=== PATIENT | female | born 1950 | race Caucasian/White ===

== ENCOUNTER 2017-02-11 06:45 | Inpatient (IN) | payer OTHER, MEDICARE ==
[~2017-02-11] VITALS: Ht 152.4 cm; Wt 63.5 kg
[2017-02-11 07:30] VITALS: BP 160/86; PULSE 65; RESP 18; TEMP 98.1; O2SAT 99
[2017-02-11] MEDS ORDERED: ALPR0.5T3 PO (07:46)
[2017-02-11] MEDS ORDERED: EXEN1INJ SQ (07:46)
[2017-02-11] MEDS ORDERED: HUMALOG SQ (07:46)
[2017-02-11] MEDS ORDERED: GABA300C5 PO (07:46)
[2017-02-11] MEDS ORDERED: VENL37.5 PO (07:46)
[2017-02-11] MEDS ORDERED: DOXA1TAB35 PO (07:46)
[2017-02-11] MEDS ORDERED: METO50TA11 PO (07:46)
[2017-02-11] MEDS ORDERED: DICL1KIT TOPICAL (07:46)
[2017-02-11] MEDS ORDERED: ACYC200C66 PO (07:46)
[2017-02-11] MEDS ORDERED: CARD2TAB PO (07:46)
[2017-02-11] MEDS ORDERED: IRBE300T11 PO (07:46)
[2017-02-11] MEDS ORDERED: METO-489 PO (07:46)
[2017-02-11] MEDS ORDERED: ADDE20 PO (07:46)
[2017-02-11] MEDS ORDERED: HYDR-3366 PO (07:46)
[2017-02-11] MEDS ORDERED: CYAN1TAB24 PO (07:46)
[2017-02-11] MEDS ORDERED: TIZA2TAB PO (07:46)
[2017-02-11] MEDS ORDERED: SYNT112T PO (07:46)
[2017-02-11] MEDS ORDERED: BUPR300T PO (07:46)
[2017-02-11 07:55] LABS: BASOPHIL % 0.6 % (0.0-2.0); EOSINOPHIL # 0.2 TH/MM3 (0-0.4); EOSINOPHIL % 3.5 % (0.0-4.0); HEMATOCRIT 31.7 % (35.0-46.0); HEMO FLAGS DIFF FINAL; LYMPH % 22.1 % (9.0-44.0); MEAN CELL VOLUME 86.2 FL (80.0-100.0); MEAN CORPUSCULAR HEMOGLOBIN 28.6 PG (27.0-34.0); MEAN CORPUSCULAR HGB CONC 33.2 % (32.0-36.0); MONO % 8.4 % (0.0-8.0); NEUT % 65.4 % (16.0-70.0); PLATELET COUNT 192 TH/MM3 (150-450); RED BLOOD COUNT 3.68 MIL/MM3 (4.00-5.30); WHITE BLOOD COUNT 4.6 TH/MM3 (4.0-11.0)
[2017-02-11 08:05] LABS: PROTHROMBIN TIME - PATIENT 10.3 SEC (9.8-11.6)
[2017-02-11 08:08] LABS: APTT (PATIENT) 24.5 SEC (24.3-30.1); INTERNATIONAL NORMALIZED RATIO 0.9 RATIO
[2017-02-11 08:11] LABS: BICARBONATE 28.4 MEQ/L (21.0-32.0); POTASSIUM 3.6 MEQ/L (3.5-5.1)
[2017-02-11] MEDS ORDERED: diphenhydrAMINE HCL 50 MG/ML VIAL ONE (08:35)
[2017-02-11] MEDS ORDERED: HYDROCORTISONE SOD SUCCINATE 100 MG VIAL ONE (08:35)
[2017-02-11] MEDS ORDERED: IOHEXOL 350 MG/ML 50 ML BTL (for Cath Lab) OTHER ONE (09:35)
[2017-02-11] MEDS ORDERED: MIDAZOLAM HCL 2 MG/2 ML VIAL ONE ×2 (09:41→10:22)
[2017-02-11] MEDS ORDERED: HEPARIN-NS/PF INJ 500 ML ONE (09:41)
[2017-02-11] MEDS ORDERED: HEPARIN SODIUM - IV 10,000 UNITS/10 ML VIAL ONE (10:42)
[2017-02-11] MEDS ORDERED: SODIUM CHLOR 0.9% 1000 ML INJ 1,000 ML IV SCH (11:00)
[2017-02-11] MEDS ORDERED: MISC INFORMATION XX ONE (11:15)
[2017-02-11] MEDS ORDERED: ONDANSETRON HCL 4 MG/2 ML VIAL IV PRN (11:15)
[2017-02-11] MEDS ORDERED: ATROPINE SULFATE 1 MG/ML VIAL IV PRN (11:15)
--- NOTE | 2017-02-11 11:22 | CATHPROC ---
[employer] HIS Report Study Information Study Number Admission Scheduled Start Study Start [id number] Feb 11 2017 6:45AM 02/11/2017 Feb 11 2017 9:35AM [place] [facility] Cardiac Catheterization Admit Source Facility Department Other [facility] - Network Systems Integrator Physician and Clinical Staff Initial MD Avila, Peter Pharmacy Retail Support Specialistrosalia Lovelace RN, Mana Echols RN Recorder Madeline Lea RCIS TECH2 Scrub Arthur Saha RCIS(BS) Procedures Performed Procedure Location (Site) Vessel Name Coronary Angiograms LCA Left Coronary Coronary Angiograms RCA Right Coronary Wire insertion Fem Art (right) Femoral Art Equipment Time Hadoop Application Developer Description Size Mfg Part Number Used/Scraped [id number] 09:36 CASSIDY FERGUSON SWAN CAROLIN CATHETER FR 7 Used *[id number] TRANSDUCER, TRUWAVE [id number] 09:36 CASSIDY FERGUSON * Used W/STOCKCOCK *[id number] TRANSDUCER, TRUWAVE [id number] 09:36 CASSIDY FERGUSON * Used W/STOCKCOCK *[id number] 10:56 CARDIVA MEDICAL VASCADE, FR6 CLOSURE SYSTEM FR 6\7 Used *[id number] 10:56 CARDIVA MEDICAL VASCADE, FR6 CLOSURE SYSTEM FR 6\7 Used *[id number]- INTRODUCER SET, 09:36 [employer]OOK INC. FR 5 SC-NT-U-SST Used MICROPUNCTURE, STIFFENED *[id number] [id number] *[id number] 534-545T *[id number] 534-520T *[id number] 534-521T *[id number] WIRE, HYDROSTEER 260CM [id number] 10:18 DAIG/ST. KATRIN MEDICAL 260CM Used STRAIGHT GLIDE *[id number] WIRE, AMPLATZ SUPER STIFF 10:20 Meditech .035 [id number] *[id number] Used STRT WIRE, AMPLATZ SUPER STIFF 10:33 Meditech .035 42478 *[id number] Used STRT [id number] 09:36 Button PACK, CCL CUSTOM * Used *[id number] 09:36 XbyMe MEDICAL WIRE, 3MMJ .035 180CM 180CM Used *[id number] 09:36 NAMIC MANIFOLD, 2 PORT * Used *[id number] 09:36 NAMIC MANIFOLD, 4 PORT * Used *[id number] 09:36 NYCOMED OMNIPAQUE, 350 MG, 150ML 150ML [id number] Used [id number] 09:36 OVIEDO MEDICAL BLANKET,WARM AIR CCL * Used *[id number] 09:43 TERUMO MEDICAL SHEATH, FR6 TERUMO (10CM) FR 6 [id number] Used 09:36 TERUMO MEDICAL SHEATH, FR7 TERUMO (10CM) FR 7 [id number] Used WIRE, ANGLE GLIDE STIFF .035 [id number] 10:28 TERUMO MEDICAL/MANSOOR 260CM Used 260CM *[id number] WIRE, STRIGHT GLIDE STIFF [id number] 10:32 TERUMO MEDICAL/MANSOOR 260CM Used .035 260CM *[id number] 10:50 VASCULAR SOLUTIONS PIGTAIL DUAL LUMEN CATHETER FR 6 5540 *[id number] Used Equipment Model, Serial, Lot Number and Expiration Data Description Model Number Serial Number Lot Number Expiration Date WIRE, AMPLATZ SUPER STIFF STRT [id number] 04-20-2019 WIRE, AMPLATZ SUPER STIFF STRT [id number] 04-20-2019 History: Current Medications Medication Dosage/Unit Route Frequency Last Date/Time Taken Insulin LOPRESSOR Synthroid History: Allergies Allergy Reaction Adhesives Contrast Media Iodine History: Risk Factors Family History of Hypertension Dyslipidemia Previous SC Previous Heart Failure Premature CAD Yes Yes Yes No No Prior Valve Prior PCI Prior CABG Surgery No No No Cerebrovascular Peripheral Artery Chronic Lung On Dialysis Diabetes Diabetes Therapy Disease Disease Disease No No No No Yes Insulin History: Symptoms/Diagnosis Selection Items CASTILLO SOB History: Stress Tests Stress or Imaging Studies Performed No History: Other Disease Selection Items Renal Failure/Insufficiency History: Other Current Smoker No Labs Hgb (g/dl) Hct (%) WBC (l/cumm) Platelets (thousands) 12.00-18.00 37.00-55.00 4.80-10.80 140.00-450.00 10.5 31.7 4.6 192 Glucose (mg/dl) BUN (mg/dl) Creatinine (mg/dl) BUN:Creatinine (1:x) 60.00-110.00 8.00-20.00 0.10-9.00 10.00-20.00 79 14 1.1 12.7 Na (meq/l) K (meq/l) 138.00-146.00 3.80-5.10 144 3.6 INR (PTT:PT) 0.50-2.00 0.9 CPK-MB (ng/ML) 0.00-7.00 Not Drawn Medication Medication Total Dose (Bolus/Oral) Medication Total Dosage/Unit 1% XYLOCAINE 20 mL FENTANYL 100 mcg HEPARIN 2500 units VERSED 4 mg Medications (Bolus/Oral) Medication Time Given Dosage/Unit Administered By Reason VERSED 02/11/2017 9:59:59 AM 2 mg Edmar Fergusonantha 2 mg VERSED given in lab by Mana Ferguson RN in Left Antecubital via Peripheral IV. Ordered by Peter Capps. FENTANYL 02/11/2017 10:00:13 AM 50 mcg Hiren Fergusona 50 mcg FENTANYL given in lab by Mana Ferguson RN in Left Antecubital via Peripheral IV. Ordered by Peter Avila. 1% XYLOCAINE 02/11/2017 10:00:30 AM 20 mL Peter Avila 20 mL 1% XYLOCAINE given in lab by Peter Avila in Right Groin via Subcutaneous. Ordered by Peter Blackman. FENTANYL 02/11/2017 10:08:10 AM 25 mcg Hiren Fergusona 25 mcg FENTANYL given in lab by Mana Ferguson RN in Left Antecubital via Peripheral IV. Ordered by Peter Avila. VERSED 02/11/2017 10:23:04 AM 2 mg Edmar Fergusonantha 2 mg VERSED given in lab by Mana Ferguson RN in Left Antecubital via Peripheral IV. Ordered by Peter Capps. FENTANYL 02/11/2017 10:31:45 AM 25 mcg Hiren Fergusona 25 mcg FENTANYL given in lab by Mana Ferguson RN in Left Antecubital via Peripheral IV. Ordered by Peter Avila. HEPARIN 02/11/2017 10:43:09 AM 2500 units Mana Ferguson 2500 units HEPARIN given in lab by Mana Ferguson RN in Left Antecubital via Peripheral IV. Order ed by Peter Avila. Medication (Drip) Medication Time Given Dosage/Unit Concentration/Unit Diluent (ml) Solution IV Solutions 02/11/2017 9:37:33 AM 0 mL (IV) 500 NaCl .9 Patient arrived on IV Solutions in Left Antecubital via Peripheral IV. Pump/Drip Flow = 20 ml/hr usin g NaCl .9. Initial Case Assessment Cardiovascular HR Rhythm NIBP Chest Pain 71 sr 182/89 0 Circulatory - Right Pulses Dorsalis Pedis Femoral 2 2 Scale (0,1,2,3,4,d) Circulatory - Left Pulses Dorsalis Pedis Femoral 2 2 Scale (0,1,2,3,4,d) Neurological State Oriented to time-place- Alert Moves all extremities person Respiration - General Respiration Rate SpO2 (%) (B/min) 10 100 Final Case Assessment Cardiovascular HR Rhythm NIBP Chest Pain 63 sr 144/77 0 Circulatory - Right Pulses Dorsalis Pedis Femoral 2 2 Scale (0,1,2,3,4,d) Circulatory - Left Pulses Dorsalis Pedis Femoral 2 2 Scale (0,1,2,3,4,d) Neurological State Oriented to time-place- Alert Moves all extremities person Respiration - General Respiration Rate SpO2 (%) (B/min) 13 99 Chronological Log Time Study Chronological Log Patient arrived via Bed. Patient recieved 100mg solucortef, 20mg famotidene, 25mg benadryl prio r to car barn laborer arrival 9:37:16 for contrast allergy. 9:37:18 Patient Name, D.O.B, / Armband Verified By R.N. 9:37:19 Consent signed by the physician and the patient and verified by the Network Systems Integrator staff. 9:37:20 Pre-op and post- op instructions given; patient acknowledges understanding of instructions. 9:37:21 Verbal Stimulation=2 Physical Stimulation=2 Airway=2 Respiration=2 TOTAL=8. (0=absent, 1=guillaume ited, 2=present) 9:37:23 Presedation assessment performed by Network Systems Integrator RN. 9:37:26 Patient has been NPO for More than 6Hrs. 9:37:27 Skin Breakdown-generalized scratches 9:37:29 Pineda Prominences Protected 9:37:32 A # 22 IV was noted in the Antecubital (left). Grade = patent 9:37:33 Patient arrived on IV Solutions in Left Antecubital via Peripheral IV. Pump/Drip Flow = 20 m l/hr using NaCl .9. 9:37:35 History and physical on the chart or being dictated. Vitals capture started with the following parameters, Patient=Adult, Interval=15 min, Initial P kcaurrm=619 mmHg, 9:40:00 Deflation Rate=5 mmHg 9:41:18 FEHP=579/81 mmhg 9:42:42 HR=69 bpm, RZRR=706/87 mmhg, SpO2=97.0 %, Resp=10 B/min, Pain=0, Amanda=2 Assessment: Initial Case, HR=71 BPM, Rhythm=sr, PVXV=237/89 mmhg, Chest Pain=0 Right Pulses: Jose Raul Ped=2, Femoral=2 9:44:00 Left Pulses: Jose Raul Ped=2, Femoral=2 Neurological: State=Alert, Ox3, CEBALLOS Respiration: Resp=10 B/min, ToB4=965 % 9:44:45 HR=76 bpm, GKXA=236/89 mmhg, SpO2=99.0 %, Resp=19 B/min, Pain=0, Amanda=2 9:45:18 Bilateral groins prepped with 2% chlorhexidine, and with a 3 min. waiting time. 9:45:42 Reference ECG taken 9:46:46 HR=78 bpm, SUYB=983/85 mmhg, SpO2=97.0 %, Resp=19 B/min, Pain=0, Amanda=2 9:48:50 HR=64 bpm, KCBY=175/73 mmhg, SpO2=99.0 %, Resp=13 B/min, Pain=0, Amanda=2 9:51:22 HR=67 bpm, CNMY=119/76 mmhg, SpO2=99.0 %, Resp=18 B/min, Pain=0, Amanda=2 9:52:55 Pressure channel 1 zeroed. 9:52:59 Pressure channel 2 zeroed. 9:53:21 HR=62 bpm, CPOY=360/79 mmhg, SpO2=99.0 %, Resp=13 B/min, Pain=0, Amanda=2 9:54:33 MD arrived. 9:54:47 HR=64 bpm, VODM=616/71 mmhg, SpO2=99.0 %, Resp=20 B/min, Pain=0, Amanda=2 9:56:48 HR=64 bpm, GJDW=001/76 mmhg, SpO2=99.0 %, Resp=13 B/min, Pain=0, Amanda=2 9:58:44 HR=62 bpm, WMJG=082/75 mmhg, SpO2=99.0 %, Resp=20 B/min, Pain=0, Amanda=2 Time Out. Correct patient, correct procedure,correct physician, power injector loaded with cont rast with surgical team 9:59:01 present. Time Out Concurred by MD and individual staff in procedure 9:59:29 Case Start 2 mg VERSED given in lab by Mana Ferguson, RN in Left Antecubital via Peripheral IV. Ordere d by Margarita, 9:59:59 Peter. 50 mcg FENTANYL given in lab by Mana Ferguson RN in Left Antecubital via Peripheral IV. Or dered by Margarita, 10:00:13 Peter. 20 mL 1% XYLOCAINE given in lab by Margarita Peter in Right Groin via Subcutaneous. Ordered b y Margarita, 10:00:30 Peter. 10:00:45 HR=67 bpm, MKSG=157/82 mmhg, UtS8=533.0 %, Resp=13 B/min 10:02:11 Access site was Right Femoral Artery. 10:02:46 HR=62 bpm, DXXS=005/73 mmhg, SpO2=97.0 %, Resp=25 B/min A INTRODUCER SET, MICROPUNCTURE, STIFFENED FR 5 was advanced into the Fem Art (right) using the 10:03:03 Percutaneous technique. A SHEATH, FR6 TERUMO (10CM) FR 6 was exchanged in the Fem Art (right). This was necessary in or terri to 10:03:11 accomodate a larger catheter. 10:03:22 Access site was Right Femoral Vein. A INTRODUCER SET, MICROPUNCTURE, STIFFENED FR 5 was advanced into the Fem Vein (right) using th e 10:03:36 Percutaneous technique. A SHEATH, FR7 TERUMO (10CM) FR 7 was exchanged in the Fem Vein (right). This was necessary in o rder to 10:03:51 accomodate a larger catheter. 10:04:06 An injection in the Fem Art (right) was made through the SHEATH, FR6 TERUMO (10CM) FR 6. 10:04:41 HR=64 bpm, VVWG=057/79 mmhg, SpO2=95.0 %, Resp=8 B/min, Pain=0, Amanda=2 10:06:04 A SWAN CAROLIN CATHETER FR 7 was inserted via Fem Vein (right) 10:06:42 HR=64 bpm, BQKO=397/82 mmhg, SpO2=97.0 %, Resp=20 B/min Recorded Pressure: PCW, HR=64, Condition=Condition 1 10:07:18 (Pulmonary Capillary Wedge) PCW 22/26/18 25 mcg FENTANYL given in lab by Mana Ferguson RN in Left Antecubital via Peripheral IV. Or dered by Margarita, 10:08:10 Peter. Recorded Pressure: MPA, HR=62, Condition=Condition 1 10:08:25 (Main Pulmonary Artery) MPA 46/16/30 10:08:43 HR=61 bpm, FOZI=165/83 mmhg, SpO2=98.0 %, Resp=18 B/min 10:09:11 Saturation: Site=PA (Pulmonary Artery) , O2=68.1 %, Hgb=10.5 gm/dl, Condition=Condition 1. Used in calculation. 10:10:09 Saturation: Site=Ao (Aorta) , O2=93.7 %, Hgb=10.5 gm/dl, Condition=Condition 1. Used in bhargavi culation. Recorded Pressure: RV, HR=68, Condition=Condition 1 10:10:10 (Right Ventricle) RV 5311/9 Recorded Pressure: RA, HR=64, Condition=Condition 1 10:10:36 (Right Atrium) RA 10:10:41 HR=64 bpm, GKTK=456/77 mmhg, SpO2=95.0 %, Resp=15 B/min, Pain=0, Amanda=2 10:11:21 Saturation: Site=RA (Right Atrium) , O2=71.1 %, Hgb=10.5 gm/dl, Condition=Condition 1. Used in calculation. 10:11:36 Rociada Carolin Catheter Removed A JL 4.0 INFINITI CATHETER FR 5 was advanced over a wire. OMNIPAQUE, 350 MG, 150ML 150ML was us ed for 10:12:41 injections. 10:12:42 HR=77 bpm, YJAD=910/76 mmhg, SpO2=96.0 %, Resp=16 B/min, Pain=0, Amanda=2 10:12:56 The LCA was injected and visualized at various angles. OMNIPAQUE, 350 MG, 150ML 150ML used . 10:14:10 Catheter was removed 10:14:43 HR=66 bpm, UKJO=665/77 mmhg, SpO2=94.0 %, Resp=17 B/min A JR 4.0 INFINITI CATHETER FR 5 was advanced over a wire. OMNIPAQUE, 350 MG, 150ML 150ML was us ed for 10:15:12 injections. 10:16:36 The RCA was injected and visualized at various angles. OMNIPAQUE, 350 MG, 150ML 150ML used . 10:16:44 HR=67 bpm, MDVI=623/78 mmhg, SpO2=96.0 %, Resp=19 B/min A AL 1 INFINITI CATHETER FR 5 was advanced over a wire. OMNIPAQUE, 350 MG, 150ML 150ML was used for 10:17:01 injections. 10:18:45 HR=70 bpm, FGDQ=728/79 mmhg, SpO2=99 %, Resp=20 B/min 10:19:36 A WIRE, HYDROSTEER 260CM STRAIGHT GLIDE 260CM was inserted via Fem Art (right). 10:20:45 HR=67 bpm, IGWA=429/81 mmhg, SpO2=97.0 %, Resp=12 B/min, Pain=0, Amanda=2 After removing the current catheter a catheter was advanced over a WIRE, HYDROSTEER 260CM STRAI GHT GLIDE 10:21:40 260CM. 2 mg VERSED given in lab by Mana Ferguson, RN in Left Antecubital via Peripheral IV. Ordere d by Margarita, 10:23:04 Peter. 10:23:25 HR=65 bpm, FQRE=584/78 mmhg, SpO2=96.0 %, Resp=14 B/min 10:24:21 Wire placement lost, catheter and wire removed 10:24:47 HR=65 bpm, LVYK=605/78 mmhg, SpO2=97.0 %, Resp=14 B/min, Pain=0, Amanda=2 A AL 1 INFINITI CATHETER FR 5 was advanced over a wire. OMNIPAQUE, 350 MG, 150ML 150ML was used for 10:24:58 injections. 10:25:10 A WIRE, AMPLATZ SUPER STIFF STRT .035 was inserted via Fem Art (right). 10:26:46 HR=70 bpm, CHHM=700/80 mmhg, SpO2=96.0 %, Resp=20 B/min, Pain=0, Amanda=2 10:27:59 Wire removed 10:28:47 HR=69 bpm, XVPL=784/84 mmhg, SpO2=94.0 %, Resp=17 B/min 10:30:15 A WIRE, STRIGHT GLIDE STIFF .035 260CM 260CM was inserted via Fem Art (right). 10:30:48 HR=67 bpm, HATP=254/76 mmhg, SpO2=96.0 %, Resp=19 B/min, Pain=0, Amanda=2 25 mcg FENTANYL given in lab by Mana Ferguson RN in Left Antecubital via Peripheral IV. Or dered by Margarita, 10:31:45 Peter. 10:32:51 HR=68 bpm, JWRA=589/78 mmhg, SpO2=95.0 %, Resp=19 B/min 10:33:21 Wire removed and catheter removed and flushed A AL 1 INFINITI CATHETER FR 5 was advanced over a wire. OMNIPAQUE, 350 MG, 150ML 150ML was used for 10:34:08 injections. 10:34:30 A WIRE, AMPLATZ SUPER STIFF STRT .035 was inserted via Fem Art (right). 10:35:32 HR=69 bpm, QUHU=667/77 mmhg, SpO2=95 %, Resp=14 B/min, Pain=0, Amanda=2 10:36:16 Nuerological checks assessed by Ashwin Ferguson RN. 10:36:48 HR=65 bpm, EMDS=364/75 mmhg, SpO2=97.0 %, Resp=19 B/min 10:37:16 Wire and catheter removed A AL 1 INFINITI CATHETER FR 5 was advanced over a wire. OMNIPAQUE, 350 MG, 150ML 150ML was used for 10:38:34 injections. 10:38:49 HR=70 bpm, QYZF=993/78 mmhg, SpO2=95 %, Resp=18 B/min 10:39:28 A WIRE, AMPLATZ SUPER STIFF STRT .035 was inserted via Fem Art (right). 10:40:50 HR=66 bpm, GTWR=393/75 mmhg, SpO2=95.0 %, Resp=20 B/min 10:42:11 Wire removed 10:42:22 Catheter was removed and flushed 10:42:51 HR=66 bpm, SLSB=754/77 mmhg, SpO2=95.0 %, Resp=19 B/min 2500 units HEPARIN given in lab by Mana Ferguson, RN in Left Antecubital via Peripheral IV. Ordered by Shaikh- 10:43:09 Peter Block. A AL 1 INFINITI CATHETER FR 5 was advanced over a wire. OMNIPAQUE, 350 MG, 150ML 150ML was used for 10:44:25 injections. 10:44:39 A WIRE, AMPLATZ SUPER STIFF STRT .035 was inserted via Fem Art (right). 10:45:30 HR=69 bpm, QEQX=886/74 mmhg, SpO2=95 %, Resp=17 B/min 10:47:03 AL1 catheter crossed the valve. 10:47:24 The previous wire was exchanged for a WIRE, ANGLE GLIDE STIFF .035 260CM 260CM. 10:47:41 After removing the current catheter a PIGTAIL DUAL LUMEN CATHETER FR 6 was advanced over a wire. 10:47:58 Wire removed 10:48:08 HR=75 bpm, EXGK=311/71 mmhg, SpO2=96.0 %, Resp=10 B/min 10:49:18 HR=64 bpm, FFYI=537/80 mmhg, SpO2=95.0 %, Resp=16 B/min Recorded Pressure: LV, Ao, HR=70, Condition=Condition 1 10:50:16 (Left Ventricle) LV 205/6/16, (Aorta) Ao 178/82/122 Recorded Pressure: LV, Ao, HR=69, Condition=Condition 1 10:50:44 (Left Ventricle) LV 204/6/16, (Aorta) Ao 178/80/122 10:50:48 HR=66 bpm, BJBE=870/85 mmhg, Resp=18 B/min Recorded Pressure: LV, Ao, HR=67, Condition=Condition 1 10:50:58 (Left Ventricle) LV 192/28/29, (Aorta) Ao 173/74/116 Recorded Pressure: LV, Ao, Ao, HR=68, Condition=Condition 1 (Left Ventricle) LV 198/4/15, 10:51:00 (Aorta) Ao 190/70/120, (Aorta) Ao 177/76/119 10:52:51 HR=64 bpm, IHMZ=818/74 mmhg, Resp=21 B/min 10:52:59 Catheter was removed 10:54:54 HR=64 bpm, HKFY=421/79 mmhg, Resp=9 B/min 10:55:01 VASCADE, FR6 CLOSURE SYSTEM FR 6\7 placement in the Fem Art (right) 10:56:52 HR=69 bpm, HENR=953/85 mmhg, SpO2=99 %, Resp=17 B/min 10:57:18 VASCADE, FR6 CLOSURE SYSTEM FR 6\7 placement in the Fem Vein (right) manual pressure held 10:57:26 Case End 10:58:53 HR=61 bpm, FHJB=806/84 mmhg, SpO2=99 %, Resp=19 B/min 11:00:56 HR=60 bpm, QXAU=652/79 mmhg, SpO2=99 %, Resp=12 B/min 11:02:55 HR=60 bpm, OHUF=265/80 mmhg, SpO2=99 %, Resp=15 B/min 11:04:52 HR=64 bpm, WMRG=831/77 mmhg, SpO2=99 %, Resp=10 B/min 11:05:21 Sterile dressing applied to site 11:05:22 No case complications noted. 11:05:23 Cine recording checked. 11:05:24 Bedside Report will be given. Assessment: Final Case, HR=63 BPM, Rhythm=sr, PFBJ=065/77 mmhg, Chest Pain=0 Right Pulses: Jose Raul Ped=2, Femoral=2 11:05:26 Left Pulses: Jose Raul Ped=2, Femoral=2 Neurological: State=Alert, Ox3, CEBALLOS Respiration: Resp=13 B/min, SpO2=99 % 11:06:48 HR=62 bpm, NYEF=216/74 mmhg, Resp=11 B/min 11:08:53 HR=62 bpm, ITGY=235/72 mmhg, Resp=20 B/min 11:10:50 HR=62 bpm, KKHT=040/77 mmhg, Resp=12 B/min 11:12:51 HR=58 bpm, MHLW=022/77 mmhg, Resp=18 B/min 11:14:52 MOUO=030/75 mmhg 11:17:33 Patient moved to bed 11:17:42 Patient transported to DOCU End Study - Contrast Media Used In Study Contrast Total Opened (mL) Total Used (mL) Total Wasted (mL) Omnipaque 15 15 0 End Study - Maximum Contrast Load Max Contrast Load (mL) 267.8 End Study - Radiation Exposure Fluoro Time (minutes) 22.7 End Study - Sheaths Sheaths Pulled By Sheath Hold Time (min) Peter Avila End Study - Patient Disposition Complications Transferred To Telemetry Bed
--- NOTE | 2017-02-11 11:44 | MA ---
cc: KOBYSHAYLEEPETER DATE: 02/11/2017 DATE OF : 1950 PROCEDURE PERFORMED 1. Right heart catheterization. 2. Left heart catheterization. 3. Selective right and left coronary angiography. 4. Right common femoral artery angiography. INDICATION Severe , severe AI, with symptoms of worsening shortness of breath on exertion PROCEDURE DESCRIPTION Consent was signed. The patient was brought into the cardiac liaison inspection laboratory assistant in a fasting state. The right groin was prepped and draped in a sterile fashion using 1% lidocaine for local anesthesia and a micropuncture kit. A 6-Serbian sheath was inserted into the right common femoral artery and a 7-Serbian sheath was inserted into the right femoral vein. A Benson-Butch was floated into wedge. This was followed by saturation recordings and pressure recordings in the right heart. Calculation of cardiac output was done by Javier's formula. Selective right and left coronary angiography were then performed with a JR4 and JL4 diagnostic catheters. Angiography was taken in multiple views. Then an AL-1 and straight Amplatz wire were used to cross the aortic valve. A dual-lumen pigtail was used to measure the simultaneous pressures in the left ventricle and the aorta. The patient tolerated the procedure well without complications. Estimated blood loss less than 40 cc. Total contrast used 15 cc. The patient's groin access sites were closed with two Vascade closure devices. RESULTS Right heart cath Pulmonary wedge pressure 18. Main PA 30. Right ventricle 53/11 with a mean of 9. Right atrium 11/9 with a mean of 8. Calculated cardiac output by Javier was 5.3. Left ventricular pressure 198/4 with an LVEDP of 15. Aortic pressure 177/76 with a mean of 119. Mean gradient across the aortic valve was 22. Calculated valve area by Hakki equation was 1.1. ANGIOGRAPHY 1. The left main is short and patent with MALIK-III flow. 2. The LAD is a transapical vessel. It tapers down at the end. It has minimal luminal irregularities. There are two diagonal vessels which are patent with MALIK-III flow. 3. The circumflex artery has minimal luminal irregularities. It is giving off three OM branches which are tortuous and patent with MALIK-III flow. 4. There is a small ramus vessel which is patent with MALIK-III flow. 5. The right coronary artery is a dominant vessel giving off the PDA. It is patent with MALIK-III flow and nonobstructive coronary artery disease. CONCLUSIONS 1. Nonobstructive coronary artery disease. 2. Moderate to severe aortic stenosis. 3. Moderate Aortic Insufficiency RECOMMENDATIONS - Transfer to DOC unit for post-cath care. - 2-D echocardiogram to assess aortic stenosis and regurgitation - CT surgery for consult for AVR Peter Avila MD MARKET GARDENER/BT /11:16 AM /11:30 AM TARIQ
--- NOTE | 2017-02-11 14:17 | EKG ---
Date Performed: 02/11/2017 Time Performed: 07:54:18 PTAGE: 66 years EKG: Possible ectopic atrial rhythm. Septal T wave changes are nonspecific Borderline ECG NO PREVIOUS TRACING DOCTOR: Shailesh Hebert Interpretating Date/Time 02/11/2017 14:15:05
[2017-02-11] MEDS ORDERED: ACETAMINOPHEN/HYDROcodone 325 MG/10 MG TAB PO ONE (15:00)
[2017-02-11] MEDS ORDERED: CHLORHEXIDINE GLUCONATE 4% SOLN 120 ML BTL TOPICAL SCH (15:15)
[2017-02-11] MEDS ORDERED: CEFAZOLIN INJ 500 MG in SODIUM CHLORIDE 0.9% IRR BTL 500 ML IRRIGATION SCH (15:15)
[2017-02-11] MEDS ORDERED: ceFAZolin 2 GM PREMIX 50 ML IV SCH (15:15)
[2017-02-11] MEDS ORDERED: INSULIN REGULAR (IV INFUSION) 100 UNITS in SODIUM CHLORIDE 0.9% INJ 100 ML IV SCH (15:15)
[2017-02-11] MEDS ORDERED: METOPROLOL TARTRATE 25 MG TAB PO SCH (15:15)
[2017-02-11] MEDS ORDERED: NON-FORMULARY DRUG (Insulin Lispro (Human) Inj (Humalog Inj) 0 UNITS) SQ SCH (16:00)
[2017-02-11] MEDS ORDERED: GLUCAGON 1 MG/ML VIAL OTHER PRN (16:15)
[2017-02-11] MEDS ORDERED: DEXTROSE 50% IN WATER 50 ML VIAL(D50) IV PUSH PRN (16:15)
--- NOTE | 2017-02-11 16:47 | ECHRPT ---
Indication: coronary atherosclerosis, AI CONCLUSIONS Normal left ventricular size. Mild concentric left ventricular hypertrophy. The left ventricular systolic function is normal with an estimated ejection fraction in the range of 55-60%. No regional wall motion abnormalities are present. The left atrial size is mildly dilated. Mild thickening of the mitral valve leaflets. Moderate mitral valve regurgitation. Mitral annular calcification is present. Moderate thickening of the aortic valve leaflets. Moderate to Severe aortic valve regurgitation. Severe aortic valve stenosis. Aortic valve area is 0.82 cm. Aortic valve mean gradient is 43 mmHg. There is trace tricuspid valve regurgitation. The estimated pulmonary arterial pressure is 35 mmHg. BP: 160 / 86 HR: 65 Rhythm: Sinus MEASUREMENTS (Male / Female) Normal Values Technical Quality:Good 2D ECHO LV Diastolic Diameter PLAX 4.3 cm 4.2 - 5.9 / 3.9 - 5.3 cm LV Systolic Diameter PLAX 3.3 cm IVS Diastolic Thickness 1.3 cm 0.6 - 1.0 / 0.6 - 0.9 cm LVPW Diastolic Thickness 0.9 cm 0.6 - 1.0 / 0.6 - 0.9 cm LV Relative Wall Thickness 0.5 RV Internal Dim ED PLAX 2.2 cm LVOT Diameter 1.7 cm LA Systolic Diameter LX 3.7 cm 3.0 - 4.0 / 2.7 - 3.8 cm DOPPLER AV Peak Velocity 433.0 cm/s AV Peak Gradient 75.0 mmHg AV Mean Gradient 43.0 mmHg AV Velocity Time Integral 120.0 cm LVOT Peak Velocity 183.0 cm/s LVOT Peak Gradient 13.4 mmHg LVOT Velocity Time Integral 43.4 cm LVOT Cardiac Index 4033.3 cm/minm AV Area Cont Eq vti 0.8 cm AV Area Cont Eq pk 1.0 cm MV Peak Velocity 182.0 cm/s MV Peak Gradient 13.2 mmHg MV Mean Velocity 94.3 cm/s MV Mean Gradient 4.0 mmHg MV Area PHT 3.2 cm MR Peak Velocity 703.0 cm/s MR Peak Gradient 197.7 mmHg Mitral E Point Velocity 82.7 cm/s Mitral A Point Velocity 135.0 cm/s Mitral E to A Ratio 0.6 LV E' Lateral Velocity 5.9 cm/s Mitral E to LV E' Lateral Ratio 14.1 LV E' Septal Velocity 4.6 cm/s Mitral E to LV E' Septal Ratio 18.1 TR Peak Velocity 276.0 cm/s TR Peak Gradient 30.5 mmHg FINDINGS LEFT VENTRICLE Normal left ventricular size. Mild concentric left ventricular hypertrophy. The left ventricular systolic function is normal with an estimated ejection fraction in the range of 55-60%. No regional wall motion abnormalities are present. RIGHT VENTRICLE Normal right ventricular size and systolic function. LEFT ATRIUM The left atrial size is mildly dilated. RIGHT ATRIUM The right atrial size is normal. ATRIAL SEPTUM Normal atrial septal thickness without atrial level shunting by limited color doppler interrogation. AORTA The aortic root and proximal ascending aorta are normal in size on limited imaging. MITRAL VALVE Mild thickening of the mitral valve leaflets. Moderate mitral valve regurgitation. Mitral annular calcification is present. AORTIC VALVE Moderate thickening of the aortic valve leaflets. Moderate aortic valve regurgitation. Moderate aortic valve stenosis. Aortic valve area is 0.82 cm. Aortic valve mean gradient is 43 mmHg. TRICUSPID VALVE There is trace tricuspid valve regurgitation. The estimated pulmonary arterial pressure is 35 mmHg. PULMONARY VALVE The pulmonary valve is not well visualized. VESSELS The inferior vena cava is normal in size. PERICARDIUM No pericardial effusion. Peter Avila MD (Electronically Signed) Final Date:11 February 2017 16:46
[2017-02-11 18:37] VITALS: BP 178/82; PULSE 66; RESP 18; TEMP 98.6; O2SAT 97
[2017-02-11 20:00] VITALS: PULSE 65
[2017-02-11] MEDS: GABAPENTIN 300 MG CAP PO SCH (20:29)
[2017-02-11] MEDS: MUPIROCIN 2% OINT 1 APPLIC/GM SYR EACH NARE SCH (20:29)
[2017-02-11] MEDS: ACETAMINOPHEN/HYDROcodone 325 MG/10 MG TAB PO PRN (20:43)
[2017-02-11] MEDS: ALPRAZolam 0.25 MG TAB PO PRN (20:43)
[2017-02-11 21:00] VITALS: BP 146/65; PULSE 65; RESP 20; TEMP 98.6; O2SAT 98
[2017-02-11] MEDS: DEXTROAMPHETAMINE/AMPHETAMINE 20 MG TAB PO SCH (21:00)
[2017-02-11] MEDS: LOW DOSE INSULIN NOVOLIN REGULAR SUPPLEMENTAL SCALE SQ SCH (21:00)
[2017-02-11] MEDS ORDERED: PILL SPLITTER OTHER PRN (21:00)
[2017-02-11 22:00] VITALS: PULSE 62
[2017-02-12] VITALS (12 sets, daily range): BP systolic 137–162; BP diastolic 62–70; PULSE 61–97; RESP 18–20; TEMP 98.3–98.8; O2SAT 94–97
[2017-02-12 00:35] LABS: AUTOMATED NEUTROPHIL # 4.5 TH/MM3 (1.8-7.7); BASOPHIL % 0.4 % (0.0-2.0); EOSINOPHIL % 0.5 % (0.0-4.0); HEMO FLAGS DIFF FINAL; LYMPH % 17.2 % (9.0-44.0); LYMPHOCYTE # 1.1 TH/MM3 (1.0-4.8); MEAN CELL VOLUME 87.5 FL (80.0-100.0); MEAN CORPUSCULAR HEMOGLOBIN 28.1 PG (27.0-34.0); MEAN CORPUSCULAR HGB CONC 32.1 % (32.0-36.0); MONO % 9.7 % (0.0-8.0); NEUT % 72.2 % (16.0-70.0); PLATELET COUNT 151 TH/MM3 (150-450); RED BLOOD COUNT 3.31 MIL/MM3 (4.00-5.30); RED CELL DISTRIBUTION WIDTH 14.9 % (11.6-17.2); WHITE BLOOD COUNT 6.2 TH/MM3 (4.0-11.0)
[2017-02-12 00:50] LABS: APTT (PATIENT) 18.4 SEC (24.3-30.1); INTERNATIONAL NORMALIZED RATIO 0.9 RATIO; PROTHROMBIN TIME - PATIENT 10.3 SEC (9.8-11.6)
[2017-02-12 00:56] LABS: ALKALINE PHOSPHATASE 61 U/L (45-117); ALT (GPT) 15 U/L (10-53); ANION GAP 11 MEQ/L (5-15); AST (GOT) 17 U/L (15-37); BICARBONATE 23.6 MEQ/L (21.0-32.0); BLOOD UREA NITROGEN 21 MG/DL (7-18); CHLORIDE 110 MEQ/L (98-107); GLOMERULAR FILTRATION RATE 47 ML/MIN (>89); POTASSIUM 3.6 MEQ/L (3.5-5.1); SODIUM (NA) 145 MEQ/L (136-145); TOTAL BILIRUBIN ADULT 0.3 MG/DL (0.2-1.0)
[2017-02-12] MEDS: ACETAMINOPHEN/HYDROcodone 325 MG/10 MG TAB PO PRN ×4 (03:42→23:40)
[2017-02-12] MEDS: LEVOTHYROXINE SODIUM 112 MCG TAB PO SCH (06:00)
[2017-02-12] MEDS: LOW DOSE INSULIN NOVOLIN REGULAR SUPPLEMENTAL SCALE SQ SCH ×4 (07:00→19:56)
[2017-02-12] MEDS ORDERED: METOPROLOL SUCCINATE 50 MG EXTENDED RELEASE TAB PO SCH (09:00)
[2017-02-12] MEDS: MUPIROCIN 2% OINT 1 APPLIC/GM SYR EACH NARE SCH ×2 (09:00→19:55)
[2017-02-12] MEDS: SODIUM CHLORIDE 0.9% FLUSH 10 ML FLUSH IV FLUSH SCH ×3 (09:00→21:00)
[2017-02-12] MEDS: DOXAZOSIN MESYLATE 2 MG TAB PO SCH (09:00)
[2017-02-12] MEDS: VENLAFAXINE HCL XR 75 MG CAP PO SCH (09:09)
[2017-02-12] MEDS: DEXTROAMPHETAMINE/AMPHETAMINE 20 MG TAB PO SCH ×2 (09:10→20:03)
[2017-02-12] MEDS: ALPRAZolam 0.25 MG TAB PO PRN ×2 (09:10→23:40)
[2017-02-12] MEDS: GABAPENTIN 300 MG CAP PO SCH ×2 (09:10→19:54)
[2017-02-12] MEDS: buPROPion HCL 150 MG SUSTAINED RELEASE TAB PO SCH ×2 (09:10→19:54)
[2017-02-12 15:10] LABS: BLOOD, URINE TRACE (NEG); COMMENT (UR) CULT NOT INDICATED; CULTURE IF INDICATED CULT NOT INDICATED; GLUCOSE,URINE NEG (NEG); HYALINE CAST, URINE 1 /lpf (RARE); KETONE, URINE NEG (NEG); MUCUS URINE FEW /lpf (OCC); NITRITE,URINE NEG (NEG); PH, URINE 5.5 (5.0-8.5); SQUAMOUS EPITHELIAL CELL URINE 3 /hpf (0-5); URINE COLOR YELLOW (YELLW/STRAW)
--- NOTE | 2017-02-12 15:36 | RADRPT ---
EXAM DATE/TIME: 02/12/2017 14:49 [facility] COMPARISON: No previous studies available for comparison. INDICATIONS : Congestive heart failure. RADIATION DOSE: 7.98 CTDIvol (mGy) MEDICAL HISTORY : Hypertension. Ovarian cancer SURGICAL HISTORY : Hysterectomy. ENCOUNTER: Initial ACUITY: 1 day PAIN SCALE: 0/10 LOCATION: chest TECHNIQUE: Volumetric scanning of the chest was performed. Using automated exposure control and adjustment of t he mA and/or kV according to patient size, radiation dose was kept as low as reasonably achievable to obtain optimal diagnostic quality images. FINDINGS: LUNGS: There is a tiny 2 mm nodule in the lateral left upper lobe. There is no consolidation or pneumothorax . PLEURAE: There is no pleural thickening or pleural effusion. MEDIASTINUM: The heart and great vessels demonstrate no acute abnormality. There is no mediastinal or hilar lymph adenopathy. AXILLAE: Within normal limits. No lymphadenopathy. MUSCULOSKELETAL: Within normal limits for patient age. MISCELLANEOUS: The visualized upper abdominal organs demonstrate no acute abnormality. There is a staple line seen a long stomach likely from prior gastric bypass procedure. CONCLUSION: Tiny 2 mm nodule in the left upper lobe. It is nonspecific. In a low risk patient, no additional foll owup is needed. In a high risk patient, a followup CT examination 6-12 months could be performed. 30 pack year smoking history or underlying neoplasm places the patient at higher risk in general. Phi Guevara MD on February 12, 2017 at 15:27 Board Certified Radiologist. This report was verified electronically.
--- NOTE | 2017-02-12 16:17 | RADRPT ---
EXAM DATE/TIME: 02/12/2017 15:10 [facility] COMPARISON: No previous studies available for comparison. INDICATIONS : Cardiac disease. Short of breath. MEDICAL HISTORY : None. SURGICAL HISTORY : None. ENCOUNTER: Initial ACUITY: 1 day PAIN SCORE: 0/10 LOCATION: Bilateral chest FINDINGS: The heart size is normal. There is minimal linear density at the left lateral lower lung likely relat ed to atelectasis. Right lung is clear. No effusion is seen. There is a dextrocurvature of the thorac ic spine and a compensatory levocurvature of the thoracolumbar region. CONCLUSION: No acute disease. Phi Guevara MD on February 12, 2017 at 16:14 Board Certified Radiologist. This report was verified electronically.
--- NOTE | 2017-02-12 17:05 | PD.CAR.PN ---
CVT Progress Note Subjective/Hospital Course: pt seen and evaluated , for AVR in am full note dictated sts data discussed with pt RISK SCORES About the STS Risk Calculator Procedure: AV Replacement Risk of Mortality: 3.174% Morbidity or Mortality: 19.692% Long Length of Stay: 9.44% Short Length of Stay: 27.277% Permanent Stroke: 1.608% Prolonged Ventilation: 12.274% DSW Infection: 0.16% Renal Failure: 4.813% Reoperation: 9.085% Objective: Vital Signs Date Time Temp Pulse Resp B/P Pulse Ox O2 Delivery O2 Flow Rate FiO2 02/12/17 12:00 72 02/12/17 10:00 62 02/12/17 08:00 61 02/12/17 06:00 61 02/12/17 04:00 98.7 68 20 162/70 97 02/12/17 04:00 62 02/12/17 02:00 62 02/12/17 00:00 62 02/12/17 00:00 98.8 67 20 137/63 94 02/11/17 22:00 62 02/11/17 21:00 98.6 65 20 146/65 98 02/11/17 20:00 65 02/11/17 18:37 98.6 66 18 178/82 97 Labs: Laboratory Tests Test 02/12/17 14:45 Urine Color YELLOW (YELLW/STRAW) Urine Turbidity CLEAR (CLEAR) Urine pH 5.5 (5.0-8.5) Urine Specific Thoreau 1.015 (1.002-1.035) Urine Protein NEG mg/dL (NEG-TRACE) Urine Glucose (UA) NEG mg/dL (NEG) Urine Ketones NEG mg/dL (NEG) Urine Occult Blood TRACE (NEG) Urine Nitrite NEG (NEG) Urine Bilirubin NEG (NEG) Urine Urobilinogen LESS THAN 2.0 MG/DL (LESS THAN 2.0) Urine Leukocyte Esterase MOD (NEG) Urine RBC 2 /hpf (0-3) Urine WBC 4 /hpf (0-5) Urine Squamous Epithelial 3 /hpf (0-5) Cells Urine Hyaline Casts 1 /lpf (RARE) Urine Mucus FEW /lpf (OCC) Microscopic Urinalysis Comment CULT NOT INDICATED Result Diagram: 02/12/17 0003 02/12/17 0003 Monik Anne Feb 12, 2017 17:05
[2017-02-13] VITALS (18 sets, daily range): BP systolic 120–187; BP diastolic 66–83; PULSE 60–102; RESP 14–18; TEMP 96.8–99.9; O2SAT 85–99
[2017-02-13] MEDS ORDERED: PHENYLEPHRINE HCL 10 MG/ML VIAL IV ONE (05:00)
[2017-02-13] MEDS ORDERED: MAGNESIUM SULFATE 1000 MG/2 ML VIAL (PED) IV ONE (05:00)
[2017-02-13] MEDS ORDERED: AMINOCAPROIC ACID INJ 250 MG/ML 20 ML VIAL IV ONE ×2 (05:00→14:46)
[2017-02-13] MEDS ORDERED: PROTAMINE SULFATE 250 MG/25 ML VIAL IV ONE ×2 (05:00→14:47)
[2017-02-13] MEDS ORDERED: HEPARIN SODIUM - SQ 10,000 UNITS/ML VIAL SQ ONE (05:00)
[2017-02-13] MEDS ORDERED: ARTIFICIAL TEARS OPTH OINT 3.5 APPLIC/3.5 GM TUBO ONE (05:00)
[2017-02-13] MEDS ORDERED: LIDOCAINE HCL 1% 30 ML VIAL OTHER ONE (05:00)
[2017-02-13] MEDS ORDERED: CALCIUM CHLORIDE 10% SOLN 1 GRAM/10 ML SYR IV ONE (05:00)
[2017-02-13] MEDS ORDERED: NITROGLYCERIN-DEXTROSE INJ 250 ML IV ONE (05:00)
[2017-02-13] MEDS ORDERED: VECURONIUM BROMIDE 10 MG VIAL IV ONE (05:00)
[2017-02-13] MEDS ORDERED: NALOXONE HCL 0.4 MG/ML AMP IV ONE (05:00)
[2017-02-13] MEDS: LEVOTHYROXINE SODIUM 112 MCG TAB PO SCH (06:00)
[2017-02-13] MEDS ORDERED: HEPARIN SODIUM - SQ 10,000 UNITS/ML VIAL ONE (06:09)
[2017-02-13] MEDS ORDERED: ceFAZolin 2 GM PREMIX 50 ML ONE (06:09)
[2017-02-13] MEDS ORDERED: VANCOMYCIN HCL 1000 MG VIAL ONE (06:09)
[2017-02-13] MEDS ORDERED: methylPREDNISolone SOD SUCC 125 MG/2 ML VIAL ONE (06:09)
[2017-02-13] MEDS: LOW DOSE INSULIN NOVOLIN REGULAR SUPPLEMENTAL SCALE SQ SCH (06:57)
[2017-02-13] MEDS ORDERED: BUPIVACAINE HCL PF 0.5% 30 ML VIAL ONE (07:05)
[2017-02-13] MEDS ORDERED: HEPARIN SODIUM - IV 10,000 UNITS/10 ML VIAL ONE (07:16)
[2017-02-13] MEDS ORDERED: CUSTODIOL HTK IRR SOLN 1,000 ML ONE (07:16)
[2017-02-13] MEDS ORDERED: POTASSIUM CHLORIDE 40 MEQ/20 ML VIAL ONE (07:16)
[2017-02-13] MEDS ORDERED: SODIUM BICARBONATE 8.4% INJ 50 ML ONE (07:17)
[2017-02-13] MEDS ORDERED: ALBUMIN HUMAN 25% 12.5 GM/50 ML BAGP IV ONE (07:17)
[2017-02-13] MEDS ORDERED: MANNITOL INJ 50 ML ONE (07:17)
[2017-02-13] MEDS ORDERED: CHLORHEXIDINE GLUCONATE 2 % 1 PACK (2 CLOTHS) TOPICAL ONE (07:36)
--- NOTE | 2017-02-13 08:36 | MB ---
cc: BRANDON CHAVARRIA MD, PEDRO MEYERS, CARY DATE OF : 1950 DATE OF CONSULTATION: 02/12/2017 REFERRING PHYSICIAN: Brandon Chavarria MD. Peter Shaikh MD. REASON FOR CONSULTATION: Evaluate for aortic valve replacement. HISTORY OF PRESENT ILLNESS: The patient is a 66-year-old patient of Dr. Brandon Chavarria also Dr. Peter Shaikh, complaining of fatigue, mild leg edema some shortness of breath on exertion, history of aortic stenosis. Echocardiogram showed normal LV size, mild LVH, EF of 55-60%, moderate to severe aortic valve regurgitation, severe aortic valve stenosis, aortic valve area of 0.82, mean gradient of 43, some trace tricuspid valve regurgitation, moderate mitral valve regurgitation. She then underwent cardiac cath yesterday which showed no evidence of coronary disease, pulmonary catheter wedge pressure of 18, RV 53/11, RA pressures of 8. We were consulted to evaluate for aortic valve replacement. PAST MEDICAL HISTORY: Significant for: 1. Severe aortic regurgitation. 2. Aortic valve stenosis 3. Carotid bruit 4. Chronic kidney disease 5. Diabetes mellitus 6. Hyperlipidemia 7. Hypertension 8. Hypothyroidism 9. Left ventricular hypertrophy 10. Ovarian cancer Palpitations 11. Pulmonary hypertension 12. Rheumatic heart disease 13. Sleep apnea. PAST SURGICAL HISTORY: 1. Gastric bypass. 2. Hysterectomy. 3. Nephrectomy. 4. Ureterectomy, partial. ALLERGIES: IV DYE PAPER TAPE HOME MEDICATIONS: 1. Acyclovir. 2. Adderall. 3. Xanax. 4. BuSpar 5. Bydureon subcu. 6. Doxazosin 7. Gabapentin 8. Hydrocodone p.r.n. 9. Irbesartan 10. Metoprolol 11. Synthroid 12. Tizanidine. 13. Effexor. FAMILY HISTORY Heart disease in her father and brother, hypertension in her mother. SOCIAL HISTORY Rare alcohol. No tobacco. Retired diabetic nurse. REVIEW OF SYSTEMS: GENERAL: No night sweats, fever, heat and cold intolerance. SKIN: No psoriasis, itching or hives. HEENT: No blurred vision, hearing loss. RESPIRATORY: Some shortness of breath, fatigue. GASTROINTESTINAL: No diarrhea, vomiting. GENITOURINARY: No burning, frequency, urgency. EMPLOYMENT TRAINING SPECIALIST: No history of TIA, CVA, seizure disorder. ENDOCRINE: Positive for diabetes. PHYSICAL EXAMINATION: On exam blood pressure 160/70, heart rate 72, afebrile. Patient is awake, alert in no acute distress. Head: Head is normocephalic, atraumatic. Pupils equal and reactive. Oral mucosa pink, moist. Neck: Supple. No JVD. Heart sounds S1-S2 with grade 2 to 3/6 systolic murmur best noted left sternal border. Lungs: Clear to auscultation. No wheezes, rales or rhonchi. Abdomen: Soft, nontender. No masses or organomegaly. Extremities: Reveal trace edema. LABORATORY DATA: Lab work shows hemoglobin 9.3, hematocrit 29, white cell count of 6.2, platelet count 151, sodium 145, potassium 3.6, BUN 21, creatinine 1.15. Admission was 1.10, glucose 79 to 219, AST 17, ALT of 15, INR 0.9. Urinalysis is unremarkable. MRSA is negative. They did a chest CT which showed a tiny 2 mm nodule left upper lobe, nonspecific. RECOMMENDATIONS: Follow up CT in 6-12 months. Chest x-ray showed no acute process. She did have a carotid ultrasound on February 05, 2017 which showed some minimal plaque in the right internal carotid, the left had no evidence of hemodynamic significant stenosis. IMPRESSION This is a 66-year-old with a history of aortic valve disorder, severe aortic regurgitation also aortic stenosis. Aortic valve area 0.82 with a mean gradient of 43. Cardiac films and echo have been evaluated by Dr. Zoey Hines. PLAN: 1. The plan will be for a minimally invasive aortic valve replacement in the a.m. She is be n.p.o. after midnight. 2. History of chronic kidney disease. 3. Hyperlipidemia 4. Hypertension 5. Diabetes mellitus. STS data will be discussed with the patient and documented in the electronic record. The patient again is scheduled for the a.m. Dictated by: DELIA Hale MD LUCI Mercedes/CLARIBEL /5:01 PM /8:39 AM
[2017-02-13] MEDS: VENLAFAXINE HCL XR 75 MG CAP PO SCH (09:00)
[2017-02-13] MEDS: DOXAZOSIN MESYLATE 2 MG TAB PO SCH (09:00)
[2017-02-13] MEDS ORDERED: LACTATED RINGER'S 1000 ML INJ 500 ML IV PRN (11:33)
[2017-02-13] MEDS ORDERED: ONDANSETRON HCL 4 MG/2 ML VIAL IV PUSH PRN (11:45)
[2017-02-13] MEDS ORDERED: CALCIUM CHLORIDE 10% 1 GRAM/10 ML VIAL IV PRN (11:45)
[2017-02-13] MEDS ORDERED: hydrALAZINE HCL 20 MG/ML VIAL IV PRN (11:45)
[2017-02-13] MEDS ORDERED: DEXTROSE 50% IN WATER 50 ML VIAL(D50) IV PUSH PRN (11:45)
[2017-02-13] MEDS ORDERED: SODIUM CHLORIDE 0.9% FLUSH 10 ML FLUSH IV FLUSH PRN (11:45)
[2017-02-13] MEDS ORDERED: POTASSIUM CHLOR 20 MEQ PREMIX 100 ML IV PRN ×2 (11:45)
[2017-02-13] MEDS ORDERED: MAGNESIUM SULFATE INJ 2 GM in SODIUM CHLORIDE 0.9% INJ 100 ML IV PRN ×4 (11:45)
[2017-02-13] MEDS ORDERED: ACETAMINOPHEN 325 MG TAB PO PRN (11:45)
[2017-02-13] MEDS ORDERED: METOPROLOL TARTRATE 5 MG/5 ML VIAL IV PUSH PRN (11:45)
[2017-02-13] MEDS ORDERED: ACETAMINOPHEN 650 MG SUPP RECTAL PRN (11:45)
--- NOTE | 2017-02-13 11:50 | PD.OP ---
cc: Peter Avila MD; Zoey Hines MD Operative Report Date of Surgery: Feb 13, 2017 Preoperative Diagnosis: (1) Aortic stenosis (2) Aortic valve regurgitation, rheumatic (3) Diastolic heart failure due to valvular disease Postoperative Diagnosis: same Procedure: Minimally invasive AVR with a 21 Intuity tissue valve LILIANE Left femoral ultrasound guided cannulation for CPB, Perclose closure Anesthesia: Dr. Benavidez Surgeon: Zoey Hines Otc Clerk(s): Artur Ryan Operation and Findings: The risks, benefits, complications, treatment options, and expected outcomes were discussed with the patient. The possibilities of reaction to medication, pulmonary aspiration, perforation of viscus, bleeding, recurrent infection, the need for additional procedures, failure to diagnose a condition, and creating a complication requiring transfusion or operation were discussed with the patient. The patient concurred with the proposed plan, giving informed consent. The site of surgery properly noted/marked. The patient was taken to Operating Room, identified as Aundrea Montes and the procedure verified as Minimally Invasive Aortic Valve Replacement. A Time Out was held and the above information confirmed. Standard monitoring lines and Ruggiero catheter were placed. General anesthesia was induced. The patient was prepped and draped in a sterile fashion. A 6 cm right anterior thoracotomy was performed and the 3rd rib was shingled. An Wilfredo retractor was placed followed by a small chest retractor. The pericardium was opened and a pericardial sling was created using interrupted 0 silk sutures. A small 1 cm incision was made at the 6th intercostal space and an LV vent and pericardial suction were placed through this access port. The aorta was dissected posteriorly for crossclamp placement. The patient was heparinized for cardiopulmonary bypass. The left femoral artery was cannulated with a 15 [employer] arterial cannula under ultrasound guidance after placing 2 Perclose devices for later closure. The left femoral vein was cannulated with a 21 [employer] cannula under LILIANE guidance to place the tip in the SVC. Antegrade Custodiol cardioplegia was employed. Additionally, hand-held coronary cardioplegia cannula was used during the procedure. The patient was placed on cardiopulmonary bypass. An aortic cross-clamp was applied and the heart was arrested using cold blood cardioplegia delivered through a 14F catheter. The aorta was opened above the sinotubular ridge and the aortic valve was exposed. The right and left coronary was directly cannulated in addition and cardioplegia was administered. The LV was vented through the right superior pulmonary vein. On opening the aorta, the valve appeared rheumatic with calcified, retracted cusps. The valve was resected as well as all annular calcification, sized for a 21 mm Intuity tissue valve which was placed with 3, 2-0 Tycron valve sutures. The valve seated well and was balloon-deployed. The aorta was closed with running 4-0 Prolene suture. The patient systemically rewarmed. The heart was vigorously deaired with a clamp on. The clamp was removed, deairing continued. The patient was easily weaned from cardiopulmonary bypass. Decannulation was carried out without incident and both the femoral vessels were secured for hemostasis closing the femoral artery with Perclose devices. Protamine was given. There was no adverse reaction. Intraoperative LILIANE following the procedure showed a well-seated aortic valve with no perivalvular leak and preserved ventricular function. Wound was checked for hemostasis was obtained using electrocautery. The 3rd rib was reapproximated to the sternum with a plating system. The fascia and pectoralis were closed with 0 Vicryl. The subcutaneous tissue was closed using a running 3-0 Monocryl suture. The skin was closed with 4-0 Monocryl. Sterile dressings were placed. At the end of the operation, all sponge, instruments, and needle counts were correct. The patient was transferred to the CVICU in stable condition. Zoey Hinse MD Feb 13, 2017 11:50
[2017-02-13] MEDS ORDERED: Post-op Orders (for Pharmacy) MISC OTHER ONE (11:52)
[2017-02-13] MEDS ORDERED: MORPHINE SULFATE 4 MG/ML INJ ONE (12:12)
[2017-02-13] MEDS ORDERED: MIDAZOLAM HCL 5 MG/5 ML VIAL ONE (12:12)
[2017-02-13] MEDS ORDERED: fentaNYL CITRATE 1000 MCG/20 ML VIAL ONE (12:12)
[2017-02-13] MEDS ORDERED: RESP: ALBUTEROL 2.5 MG/IPRATROPIUM 0.5 MG NEB (PRN) NEB (12:45)
[2017-02-13] MEDS ORDERED: RESP: RACEPINEPHRINE 2.25% 0.5 ML NEB NEB PRN ×2 (12:45→14:00)
[2017-02-13] MEDS ORDERED: POTASSIUM CHLORIDE 20 MEQ CONTROLLED RELEASE TAB PO PRN ×2 (13:00→14:00)
[2017-02-13] MEDS: CLEVIDIPINE INJ 50 ML IV SCH ×2 (13:05→20:27)
--- NOTE | 2017-02-13 13:05 | RADRPT ---
EXAM DATE/TIME: 02/13/2017 12:13 [facility] COMPARISON: CHEST PA & LAT, February 12, 2017, 15:10. INDICATIONS : Post op heart surgery. MEDICAL HISTORY : Hypertension. Ovarian cancer SURGICAL HISTORY : Hysterectomy. ENCOUNTER: Initial ACUITY: 1 day PAIN SCORE: Non-responsive. LOCATION: Bilateral chest FINDINGS: Postsurgical changes of cardiac surgery with valve replacement. There is a right IJ central line with tip near the cavoatrial junction. Right-sided chest tube in place. No significant pneumothorax. Left lower lobe airspace consolidation. Cardiomediastinal contours are stable. Remainder of the exam is u nchanged. CONCLUSION: 1. Expected immediate postoperative changes of cardiac surgery and valve replacement with tubes and l jennifer, as above. 2. No pneumothorax. 3. Left lower lobe airspace consolidation, likely atelectasis. Eriberto Wetzel MD on February 13, 2017 at 13:00 Board Certified Radiologist. This report was verified electronically.
[2017-02-13] MEDS: CALCIUM CHLORIDE INJ 1 GM in SODIUM CHLORIDE 0.9% INJ 100 ML IV PRN ×2 (13:06→17:39)
[2017-02-13] MEDS: ACETAMINOPHEN 1000 MG/100 ML VIAL IV SCH ×2 (13:12→20:09)
[2017-02-13] MEDS ORDERED: INSULIN REGULAR (IV INFUSION) 100 UNITS in SODIUM CHLORIDE 0.9% INJ 99 ML IV SCH (14:00)
[2017-02-13] MEDS ORDERED: NEOSTIGMINE METHYLSULFATE 10 MG/10 ML VIAL IV PUSH ONE (14:46)
[2017-02-13] MEDS ORDERED: LACTATED RINGER'S 1000 ML INJ 2,000 ML IV ONE (14:48)
[2017-02-13] MEDS ORDERED: SODIUM CHLORIDE 0.9% INJ 100 ML IV ONE (14:48)
[2017-02-13] MEDS ORDERED: NORMOSOL R INJ 2,000 ML IV ONE (14:49)
[2017-02-13] MEDS ORDERED: SODIUM CHLORID 0.9% 500 ML INJ 500 ML IV ONE (14:49)
[2017-02-13] MEDS ORDERED: SODIUM CHLOR 0.9% 250 ML INJ 250 ML IV ONE (14:49)
[2017-02-13] MEDS: POTASSIUM CHLOR 20 MEQ PREMIX 100 ML IV PRN ×2 (15:30→20:54)
[2017-02-13] MEDS ORDERED: RESP: ALBUTEROL 2.5 MG/IPRATROPIUM 0.5 MG NEB (SCH) NEB (16:00)
[2017-02-13] MEDS ORDERED: KETOROLAC TROMETHAMINE 30 MG/ML (IVP) VIAL IV PUSH PRN (16:30)
[2017-02-13] MEDS: oxyCODONE/ACETAMINOPHEN 10 MG/325 MG TAB PO PRN (17:20)
[2017-02-13] MEDS: RESP: ALBUTEROL 2.5 MG/IPRATROPIUM 0.5 MG NEB (SCH) NEB ×2 (17:26→22:06)
[2017-02-13] MEDS: DEXTROAMPHETAMINE/AMPHETAMINE 20 MG TAB PO SCH (20:21)
[2017-02-13] MEDS: buPROPion HCL 150 MG SUSTAINED RELEASE TAB PO SCH (20:21)
[2017-02-13] MEDS: GABAPENTIN 300 MG CAP PO SCH (20:21)
[2017-02-13] MEDS: SODIUM CHLORIDE 0.9% FLUSH 10 ML FLUSH IV FLUSH SCH (20:43)
[2017-02-13] MEDS: MUPIROCIN 2% OINT 1 APPLIC/GM SYR EACH NARE SCH (20:43)
[2017-02-14] VITALS (21 sets, daily range): BP systolic 109–181; BP diastolic 52–94; PULSE 75–91; RESP 16–22; TEMP 97.8–100.1; O2SAT 92–100
[2017-02-14] MEDS: CLEVIDIPINE INJ 50 ML IV SCH ×2 (01:17→06:10)
[2017-02-14] MEDS: ACETAMINOPHEN 1000 MG/100 ML VIAL IV SCH ×2 (01:31→07:59)
[2017-02-14] MEDS: RESP: ALBUTEROL 2.5 MG/IPRATROPIUM 0.5 MG NEB (SCH) NEB ×4 (03:29→20:34)
[2017-02-14] MEDS: oxyCODONE/ACETAMINOPHEN 10 MG/325 MG TAB PO PRN ×4 (03:51→20:21)
[2017-02-14 04:52] LABS: HEMATOCRIT 35.9 % (35.0-46.0); MEAN CELL VOLUME 85.8 FL (80.0-100.0); MEAN CORPUSCULAR HEMOGLOBIN 28.4 PG (27.0-34.0); MEAN CORPUSCULAR HGB CONC 33.1 % (32.0-36.0); PLATELET COUNT 97 TH/MM3 (150-450); RED BLOOD COUNT 4.18 MIL/MM3 (4.00-5.30); RED CELL DISTRIBUTION WIDTH 15.8 % (11.6-17.2); WHITE BLOOD COUNT 13.1 TH/MM3 (4.0-11.0)
[2017-02-14 04:59] LABS: REVIEW FLAG FINAL
[2017-02-14 05:06] LABS: BICARBONATE 23.1 MEQ/L (21.0-32.0); MAGNESIUM 1.9 MG/DL (1.5-2.5); POTASSIUM 3.9 MEQ/L (3.5-5.1)
--- NOTE | 2017-02-14 05:34 | RADRPT ---
EXAM DATE/TIME: 02/14/2017 03:55 [facility] COMPARISON: CHEST SINGLE AP, February 13, 2017, 12:13. INDICATIONS : Shortness of breath, possible pulmonary disease. MEDICAL HISTORY : Hypertension. Ovarian cancer SURGICAL HISTORY : Hysterectomy. Valve replacement ENCOUNTER: Subsequent ACUITY: 2 days PAIN SCORE: 6/10 LOCATION: Bilateral chest FINDINGS: Mild bilateral airspace opacities persist, perihilar predominant on the right and basilar predominant on the left. Small left pleural effusion. There is a right chest tube. I don't see a pneumothorax. Heart size stable, upper limits of normal. Right internal jugular central venous catheter again seen, tip in the superior vena cava. CONCLUSION: No significant change. Phi Maurice MD on February 14, 2017 at 5:32 Board Certified Radiologist. This report was verified electronically.
[2017-02-14] MEDS: LEVOTHYROXINE SODIUM 112 MCG TAB PO SCH (06:10)
[2017-02-14] MEDS: PANTOPRAZOLE SOD 40 MG DELAYED RELEASE TAB PO SCH (06:10)
[2017-02-14] MEDS ORDERED: DEXTROSE 50% IN WATER 50 ML VIAL(D50) IV PRN (07:30)
[2017-02-14] MEDS ORDERED: INSULIN DETEMIR 100 UNITS/ML VIAL SQ ONE (07:30)
[2017-02-14] MEDS ORDERED: SOD PHOSPHATE/SOD BIPHOSPHATE (ADULT) ENEMA 133ML RECTAL PRN (07:30)
[2017-02-14] MEDS ORDERED: BISACODYL 10 MG SUPP RECTAL PRN (07:30)
[2017-02-14] MEDS ORDERED: GLUCAGON 1 MG/ML VIAL OTHER PRN (07:30)
[2017-02-14] MEDS: POTASSIUM CHLOR 20 MEQ PREMIX 100 ML IV PRN (08:00)
[2017-02-14] MEDS: MAGNESIUM HYDROXIDE SUSP 30 ML CUP PO SCH (09:00)
[2017-02-14] MEDS: DEXTROAMPHETAMINE/AMPHETAMINE 20 MG TAB PO SCH ×2 (09:00→21:00)
[2017-02-14] MEDS: DOCUSATE SODIUM 100 MG CAP PO SCH ×2 (09:00→22:08)
[2017-02-14] MEDS: ASPIRIN 81 MG CHEW TAB PO SCH (09:00)
[2017-02-14] MEDS: MUPIROCIN 2% OINT 1 APPLIC/GM SYR EACH NARE SCH ×2 (09:00→21:00)
[2017-02-14] MEDS: METOPROLOL TARTRATE 25 MG TAB PO SCH ×2 (09:29→22:08)
[2017-02-14] MEDS: FUROSEMIDE 40 MG/4 ML VIAL IV PUSH SCH (09:30)
[2017-02-14] MEDS: SODIUM CHLORIDE 0.9% FLUSH 10 ML FLUSH IV FLUSH SCH ×2 (09:30→21:00)
[2017-02-14] MEDS: MULTIVITAMINS/MINERALS THERAPEUTIC TAB PO SCH (09:31)
[2017-02-14] MEDS: GABAPENTIN 300 MG CAP PO SCH ×2 (09:31→21:00)
[2017-02-14] MEDS: buPROPion HCL 150 MG SUSTAINED RELEASE TAB PO SCH ×2 (09:32→22:08)
[2017-02-14] MEDS: POTASSIUM CHLORIDE 10 MEQ CONTROLLED RELEASE TAB PO SCH (09:33)
[2017-02-14] MEDS: INSULIN ASPART SUPPLEMENTAL SCALE SQ SCH ×5 (10:00→22:16)
[2017-02-14] MEDS: VENLAFAXINE HCL XR 75 MG CAP PO SCH (10:04)
--- NOTE | 2017-02-14 10:37 | RSPPFT ---
DATE OF PROCEDURE: 02/12/17 COMMENTS: Spirometry with FVC of 2.4 at 96% of predicted, FEV1 of 2.0 at 106%, FEV1/FVC ratio is normal. Flow is normal at FEF 25-75. IMPRESSION: 1. Normal spirometry. 2. Post-bronchodilator study was not done.
--- NOTE | 2017-02-14 13:55 | EKG ---
Date Performed: 02/14/2017 Time Performed: 04:00:04 PTAGE: 66 years EKG: Sinus rhythm Compared to prior tracing no significant change Normal ECG PREVIOUS TRACING : 02/11/2017 07.54 DOCTOR: Pauly Daniels Interpretating Date/Time 02/14/2017 13:48:19
--- NOTE | 2017-02-14 16:47 | PD.CAR.PN ---
CVT Progress Note CVT: POD #: 1 Subjective/Hospital Course: pt seen and evaluated , for AVR in am full note dictated sts data discussed with pt RISK SCORES About the STS Risk Calculator Procedure: AV Replacement Risk of Mortality: 3.174% Morbidity or Mortality: 19.692% Long Length of Stay: 9.44% Short Length of Stay: 27.277% Permanent Stroke: 1.608% Prolonged Ventilation: 12.274% DSW Infection: 0.16% Renal Failure: 4.813% Reoperation: 9.085% 02/14/17 c/o incisional pain Objective: Vital Signs Date Time Temp Pulse Resp B/P Pulse Ox O2 Delivery O2 Flow Rate FiO2 02/14/17 13:30 97 Nasal Cannula 2.00 02/14/17 13:15 98.4 79 18 147/81 100 Arterial Line 02/14/17 11:00 80 02/14/17 09:59 22 02/14/17 09:59 22 02/14/17 09:21 97 High Flow Nasal Cannula 5.00 02/14/17 08:00 97.8 87 22 110/58 98 120/52 02/14/17 08:00 89 02/14/17 08:00 98 Simple Mask 10.00 02/14/17 07:00 85 02/14/17 05:00 18 02/14/17 04:00 97 Simple Mask 10.00 02/14/17 04:00 100.1 86 20 129/63 97 148/52 02/14/17 04:00 91 02/14/17 03:00 81 02/14/17 00:25 99.9 02/14/17 00:00 94 Simple Mask 10.00 02/14/17 00:00 73 02/14/17 00:00 99.9 79 20 143/75 94 181/77 02/13/17 23:00 81 02/13/17 22:07 96 Simple Mask 10.00 02/13/17 20:25 99.9 02/13/17 20:00 70 02/13/17 20:00 95 Simple Mask 10.00 02/13/17 20:00 99.9 72 18 152/81 95 173/74 02/13/17 20:00 72 02/13/17 18:00 72 02/13/17 17:20 98.6 Result Diagram: 02/14/17 0415 02/14/17 0415 Imaging: Last 24 hours Impressions Chest X-Ray 02/14/17 0500 Signed Impressions: Service Date/Time: January 03:55 - CONCLUSION: No significant change. 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
[2017-02-14] MEDS: DOXAZOSIN MESYLATE 2 MG TAB PO SCH (18:29)
[2017-02-14] MEDS: SENNOSIDES 8.6 MG TAB PO SCH (21:00)
[2017-02-14] MEDS: oxyCODONE/ACETAMINOPHEN 5 MG/325 MG TAB PO PRN (23:38)
[2017-02-15] VITALS (33 sets, daily range): BP systolic 95–149; BP diastolic 58–90; PULSE 73–95; RESP 15–26; TEMP 97.8–98.7; O2SAT 90–98
[2017-02-15] MEDS: INSULIN ASPART SUPPLEMENTAL SCALE SQ SCH ×6 (02:00→21:00)
[2017-02-15] MEDS: oxyCODONE/ACETAMINOPHEN 10 MG/325 MG TAB PO PRN ×4 (02:58→21:11)
[2017-02-15] MEDS: RESP: ALBUTEROL 2.5 MG/IPRATROPIUM 0.5 MG NEB (PRN) NEB (03:30)
--- NOTE | 2017-02-15 04:05 | RADRPT ---
EXAM DATE/TIME: 02/15/2017 03:11 [facility] COMPARISON: CHEST SINGLE AP, February 14, 2017, 3:55. INDICATIONS : Shortness of breath. Chest tube came out. MEDICAL HISTORY : Diabetes mellitus type II. SURGICAL HISTORY : Valve replacement. ENCOUNTER: Initial ACUITY: 1 day PAIN SCORE: 9/10 LOCATION: Bilateral chest FINDINGS: A single view of the chest demonstrates bibasilar densities. Right-sided chest tube unchanged. Right jugular central line unchanged. No pneumothorax. Cardiomegaly. Osseous structures are intact. CONCLUSION: Stable bibasilar atelectasis. Stephen Herring MD on February 15, 2017 at 4:03 Board Certified Radiologist. This report was verified electronically.
[2017-02-15] MEDS: ALPRAZolam 0.25 MG TAB PO PRN (04:23)
[2017-02-15] MEDS: LEVOTHYROXINE SODIUM 112 MCG TAB PO SCH (05:40)
[2017-02-15] MEDS: PANTOPRAZOLE SOD 40 MG DELAYED RELEASE TAB PO SCH (05:40)
[2017-02-15 05:57] LABS: AUTOMATED NEUTROPHIL # 8.6 TH/MM3 (1.8-7.7); BASOPHIL % 0.1 % (0.0-2.0); EOSINOPHIL # 0.1 TH/MM3 (0-0.4); EOSINOPHIL % 0.6 % (0.0-4.0); HEMATOCRIT 31.8 % (35.0-46.0); LYMPH % 8.6 % (9.0-44.0); LYMPHOCYTE # 0.9 TH/MM3 (1.0-4.8); MEAN CELL VOLUME 86.1 FL (80.0-100.0); MEAN CORPUSCULAR HEMOGLOBIN 29.2 PG (27.0-34.0); MEAN CORPUSCULAR HGB CONC 33.9 % (32.0-36.0); NEUT % 82.7 % (16.0-70.0); PLATELET COUNT 91 TH/MM3 (150-450); RED BLOOD COUNT 3.69 MIL/MM3 (4.00-5.30); RED CELL DISTRIBUTION WIDTH 15.5 % (11.6-17.2); WHITE BLOOD COUNT 10.4 TH/MM3 (4.0-11.0)
[2017-02-15 05:59] LABS: ALT (GPT) 9 U/L (10-53); ANION GAP 5 MEQ/L (5-15); AST (GOT) 21 U/L (15-37); BICARBONATE 28.6 MEQ/L (21.0-32.0); BLOOD UREA NITROGEN 26 MG/DL (7-18); CHLORIDE 107 MEQ/L (98-107); GLOMERULAR FILTRATION RATE 41 ML/MIN (>89); MAGNESIUM 2.3 MG/DL (1.5-2.5); POTASSIUM 4.1 MEQ/L (3.5-5.1); SODIUM (NA) 141 MEQ/L (136-145)
[2017-02-15 06:01] LABS: ALKALINE PHOSPHATASE 54 U/L (45-117); TOTAL BILIRUBIN ADULT 0.5 MG/DL (0.2-1.0)
[2017-02-15 06:03] LABS: HEMO FLAGS AUTO DIFF
[2017-02-15] MEDS: RESP: ALBUTEROL 2.5 MG/IPRATROPIUM 0.5 MG NEB (SCH) NEB ×3 (08:00→20:03)
[2017-02-15 08:13] LABS: OVALOCYTES 1+ (NORMAL); PLATELET ESTIMATE SMEAR LOW (NORMAL); PLATELET MORPHOLOGY NORMAL (NORMAL); SCAN/DIFF AUTO DIFF CONFIRMED
[2017-02-15] MEDS: POLYETHYLENE GLYCOL 17 GM PKG PO SCH (08:22)
[2017-02-15] MEDS: DOXAZOSIN MESYLATE 2 MG TAB PO SCH (08:23)
[2017-02-15] MEDS: POTASSIUM CHLORIDE 10 MEQ CONTROLLED RELEASE TAB PO SCH (08:24)
[2017-02-15] MEDS: DOCUSATE SODIUM 100 MG CAP PO SCH ×2 (08:24→21:10)
[2017-02-15] MEDS: GABAPENTIN 300 MG CAP PO SCH ×2 (08:25→21:00)
[2017-02-15] MEDS: VENLAFAXINE HCL XR 75 MG CAP PO SCH (08:25)
[2017-02-15] MEDS: MULTIVITAMINS/MINERALS THERAPEUTIC TAB PO SCH (08:25)
[2017-02-15] MEDS: METOPROLOL TARTRATE 25 MG TAB PO SCH ×2 (08:26→21:11)
[2017-02-15] MEDS: DEXTROAMPHETAMINE/AMPHETAMINE 20 MG TAB PO SCH ×2 (08:26→21:00)
[2017-02-15] MEDS: FUROSEMIDE 40 MG/4 ML VIAL IV PUSH SCH (08:27)
[2017-02-15] MEDS: buPROPion HCL 150 MG SUSTAINED RELEASE TAB PO SCH ×2 (08:28→21:00)
[2017-02-15] MEDS: MAGNESIUM HYDROXIDE SUSP 30 ML CUP PO SCH (08:28)
[2017-02-15] MEDS: MUPIROCIN 2% OINT 1 APPLIC/GM SYR EACH NARE SCH ×2 (08:28→21:00)
[2017-02-15] MEDS: SODIUM CHLORIDE 0.9% FLUSH 10 ML FLUSH IV FLUSH SCH ×2 (08:28→21:00)
[2017-02-15] MEDS: ASPIRIN 81 MG CHEW TAB PO SCH (11:15)
--- NOTE | 2017-02-15 12:44 | PD.CAR.PN ---
CVT Progress Note CVT: POD #: 2 Subjective/Hospital Course: pt seen and evaluated , for AVR in am full note dictated sts data discussed with pt RISK SCORES About the STS Risk Calculator Procedure: AV Replacement Risk of Mortality: 3.174% Morbidity or Mortality: 19.692% Long Length of Stay: 9.44% Short Length of Stay: 27.277% Permanent Stroke: 1.608% Prolonged Ventilation: 12.274% DSW Infection: 0.16% Renal Failure: 4.813% Reoperation: 9.085% 02/14/17 c/o incisional pain 02/15/17 Doing well, improving Objective: Vital Signs Date Time Temp Pulse Resp B/P Pulse Ox O2 Delivery O2 Flow Rate FiO2 02/15/17 12:00 76 02/15/17 11:00 98.3 78 15 102/62 90 02/15/17 10:00 85 02/15/17 10:00 16 02/15/17 09:00 80 02/15/17 08:04 96 Nasal Cannula 2.00 02/15/17 08:00 98.2 83 15 114/68 94 02/15/17 08:00 78 02/15/17 07:00 77 02/15/17 06:00 82 02/15/17 05:00 81 02/15/17 04:18 18 02/15/17 04:00 78 02/15/17 03:00 98.7 75 18 149/90 94 02/15/17 03:00 75 02/15/17 03:00 76 02/15/17 02:00 79 02/15/17 01:10 75 02/15/17 00:51 16 02/15/17 00:00 80 02/14/17 23:00 98.4 83 16 109/70 92 02/14/17 23:00 83 02/14/17 23:00 78 02/14/17 22:00 86 02/14/17 21:00 90 02/14/17 20:30 93 21 02/14/17 20:00 82 02/14/17 19:00 98.6 81 18 180/94 95 02/14/17 19:00 95 Room Air 02/14/17 19:00 81 02/14/17 19:00 82 02/14/17 18:00 76 02/14/17 17:00 84 02/14/17 16:00 82 02/14/17 16:00 93 Room Air 02/14/17 15:50 98.9 83 16 119/70 93 02/14/17 15:00 75 02/14/17 14:00 78 02/14/17 13:30 97 Nasal Cannula 2.00 02/14/17 13:15 98.4 79 18 147/81 100 Arterial Line Labs: Laboratory Tests Test 02/15/17 05:30 White Blood Count 10.4 TH/MM3 (4.0-11.0) Red Blood Count 3.69 MIL/MM3 (4.00-5.30) Hemoglobin 10.8 GM/DL (11.6-15.3) Hematocrit 31.8 % (35.0-46.0) Mean Corpuscular Volume 86.1 FL (80.0-100.0) Mean Corpuscular Hemoglobin 29.2 PG (27.0-34.0) Mean Corpuscular Hemoglobin 33.9 % Concent (32.0-36.0) Red Cell Distribution Width 15.5 % (11.6-17.2) Platelet Count 91 TH/MM3 (150-450) Mean Platelet Volume 9.0 FL (7.0-11.0) Neutrophils (%) (Auto) 82.7 % (16.0-70.0) Lymphocytes (%) (Auto) 8.6 % (9.0-44.0) Monocytes (%) (Auto) 8.0 % (0.0-8.0) Eosinophils (%) (Auto) 0.6 % (0.0-4.0) Basophils (%) (Auto) 0.1 % (0.0-2.0) Neutrophils # (Auto) 8.6 TH/MM3 (1.8-7.7) Lymphocytes # (Auto) 0.9 TH/MM3 (1.0-4.8) Monocytes # (Auto) 0.8 TH/MM3 (0-0.9) Eosinophils # (Auto) 0.1 TH/MM3 (0-0.4) Basophils # (Auto) 0.0 TH/MM3 (0-0.2) CBC Comment AUTO DIFF Differential Comment AUTO DIFF CONFIRMED Platelet Estimate LOW (NORMAL) Platelet Morphology Comment NORMAL (NORMAL) Ovalocytes 1+ (NORMAL) Sodium Level 141 MEQ/L (136-145) Potassium Level 4.1 MEQ/L (3.5-5.1) Chloride Level 107 MEQ/L (98-107) Carbon Dioxide Level 28.6 MEQ/L (21.0-32.0) Anion Gap 5 MEQ/L (5-15) Blood Urea Nitrogen 26 MG/DL (7-18) Creatinine 1.30 MG/DL (0.50-1.00) Estimat Glomerular Filtration 41 ML/MIN (>89) Rate Random Glucose 142 MG/DL (74-106) Calcium Level 8.4 MG/DL (8.5-10.1) Magnesium Level 2.3 MG/DL (1.5-2.5) Total Bilirubin 0.5 MG/DL (0.2-1.0) Aspartate Amino Transf 21 U/L (15-37) (AST/SGOT) Alanine Aminotransferase 9 U/L (10-53) (ALT/SGPT) Alkaline Phosphatase 54 U/L (45-117) Total Protein 5.8 GM/DL (6.4-8.2) Albumin 2.6 GM/DL (3.4-5.0) Result Diagram: 02/15/1730 02/15/17 0530 Imaging: Last 24 hours Impressions Chest X-Ray 02/15/17 0000 Signed Impressions: Service Date/Time: Wednesday, February 15, 2017 03:11 - CONCLUSION: Stable bibasilar atelectasis. Stephen Herring MD Cardiovascular: RRR Telemetry: NSR Pulmonary: CTA GI/: NABS, NT Incision: dry and intact CT: ~70ml/12 hrs Plan: D/C chest tubes Decrease beta scott dose Gentle diuresis BMP in AM Anticipate D/C this weekend Stim Zoey Black MD Feb 15, 2017 12:44
[2017-02-15] MEDS: oxyCODONE/ACETAMINOPHEN 5 MG/325 MG TAB PO PRN (15:15)
[2017-02-15] MEDS ORDERED: INSULIN ASPART SUPPLEMENTAL SCALE SQ SCH (21:00)
[2017-02-15] MEDS: SENNOSIDES 8.6 MG TAB PO SCH (21:00)
[2017-02-16] VITALS (29 sets, daily range): BP systolic 95–140; BP diastolic 57–83; PULSE 75–120; RESP 18–20; TEMP 98.2–99.3; O2SAT 92–98
[2017-02-16] MEDS: ALPRAZolam 0.25 MG TAB PO PRN (01:54)
[2017-02-16] MEDS: oxyCODONE/ACETAMINOPHEN 10 MG/325 MG TAB PO PRN ×4 (01:54→20:56)
[2017-02-16] MEDS: PANTOPRAZOLE SOD 40 MG DELAYED RELEASE TAB PO SCH (05:20)
[2017-02-16] MEDS: LEVOTHYROXINE SODIUM 112 MCG TAB PO SCH (05:20)
[2017-02-16] MEDS: INSULIN ASPART SUPPLEMENTAL SCALE SQ SCH ×4 (06:19→21:00)
[2017-02-16] MEDS ORDERED: ASPI81CH25 PO (07:38)
[2017-02-16] MEDS ORDERED: METO25TA3 PO (07:38)
[2017-02-16] MEDS ORDERED: THERM PO (07:38)
[2017-02-16] MEDS ORDERED: HYDR-3366 PO (07:38)
[2017-02-16] MEDS ORDERED: PANT40TA3 PO (07:38)
[2017-02-16] MEDS ORDERED: DOCU1CAP39 PO (07:38)
--- NOTE | 2017-02-16 07:40 | HHI.FF ---
Face to Face Verification Diagnosis: (1) S/P AVR (aortic valve replacement) Physical Therapy Order: Evaluate and Treat, Improve ambulation Home Health Nursing Order: Medical education Signs/symptoms of disease process Diabetic education Medication education-adverse effect Nursing assessment with vital signs I have seen patient Aundrea Montes on 02/16/17. My clinical findings support the need for the requested home health care services because: Deconditioned w/ increased weakness Limited ability to care for self I certify that my clinical findings support that this patient is homebound because: Post-op weakness Zoey Hines MD Feb 16, 2017 07:40
--- NOTE | 2017-02-16 07:57 | HHI.DS ---
Discharge Summary Admission Date Feb 11, 2017 at 15:09 Discharge Date: Feb 16, 2017 Admitting Diagnosis Aortic stenosis Aortic regurgitation Diastolic HF HTN DM chronic kidney disease hyperlipidemia Sleep apnea (1) Aortic stenosis Diagnosis: Principal (2) Aortic valve regurgitation, rheumatic Diagnosis: Principal (3) Diastolic heart failure due to valvular disease Diagnosis: Principal (4) Diabetes Diagnosis: Secondary (5) HTN (hypertension) Diagnosis: Secondary (6) Hyperlipidemia Diagnosis: Secondary (7) Sleep apnea Diagnosis: Secondary (8) Hypothyroid Diagnosis: Secondary Procedures Minimally invasive AVR Brief History 66 y/o female presents with severe AI and moderate . She has exertional dyspnea and multiple comorbidities. She underwent LHC and was found to have no significant CAD. pt seen and evaluated , for AVR in am full note dictated sts data discussed with pt RISK SCORES About the STS Risk Calculator Procedure: AV Replacement Risk of Mortality: 3.174% Morbidity or Mortality: 19.692% Long Length of Stay: 9.44% Short Length of Stay: 27.277% Permanent Stroke: 1.608% Prolonged Ventilation: 12.274% DSW Infection: 0.16% Renal Failure: 4.813% Reoperation: 9.085% CBC/BMP: 02/15/17 0530 02/16/17 0515 Significant Findings Laboratory Tests Test 02/14/17 02/15/17 02/16/17 04:15 05:30 05:15 White Blood Count 13.1 TH/MM3 (4.0-11.0) Platelet Count 97 TH/MM3 91 TH/MM3 (150-450) (150-450) Blood Urea Nitrogen 25 MG/DL (7-18) 26 MG/DL (7-18) 25 MG/DL (7-18) Creatinine 1.12 MG/DL 1.30 MG/DL (0.50-1.00) (0.50-1.00) Estimat Glomerular Filtration 49 ML/MIN (>89) 41 ML/MIN (>89) 56 ML/MIN (>89) Rate Random Glucose 127 MG/DL 142 MG/DL (74-106) (74-106) Calcium Level 8.0 MG/DL 8.4 MG/DL (8.5-10.1) (8.5-10.1) Red Blood Count 3.69 MIL/MM3 (4.00-5.30) Hemoglobin 10.8 GM/DL (11.6-15.3) Hematocrit 31.8 % (35.0-46.0) Neutrophils (%) (Auto) 82.7 % (16.0-70.0) Lymphocytes (%) (Auto) 8.6 % (9.0-44.0) Neutrophils # (Auto) 8.6 TH/MM3 (1.8-7.7) Lymphocytes # (Auto) 0.9 TH/MM3 (1.0-4.8) Platelet Estimate LOW (NORMAL) Ovalocytes 1+ (NORMAL) Alanine Aminotransferase 9 U/L (10-53) (ALT/SGPT) Total Protein 5.8 GM/DL (6.4-8.2) Albumin 2.6 GM/DL (3.4-5.0) Imaging Last Impressions Chest X-Ray 02/15/17 0000 Signed Impressions: Service Date/Time: Wednesday, February 15, 2017 03:11 - CONCLUSION: Stable bibasilar atelectasis. Stephen Herring MD Chest CT 02/12/17 0000 Signed Impressions: Service Date/Time: Sunday, February 12, 2017 14:49 - CONCLUSION: Tiny 2 mm nodule in the left upper lobe. It is nonspecific. In a low risk patient, no additional followup is needed. In a high risk patient, a followup CT examination 6-12 months could be performed. 30 pack year smoking history or underlying neoplasm places the patient at higher risk in general. Phi Guevara MD PE at Discharge chest - CTA COR - RRR, no murmurs ABD - soft, NT wound - dry and intact Hospital Course 02/14/17 c/o incisional pain 02/15/17 Doing well, improving Pt Condition on Discharge: Good Discharge Disposition: Disch w/ Home Health Serv Discharge Instructions DIET: Follow Instructions for: Heart Healthy Diet Activities you can perform: Weight Bearing as Mac, Full Weight Bearing Activities to avoid: Driving Follow up Referrals: Appointment for Follow Up - 4 Weeks @ [facility] - 3 Weeks @ [facility] PCP Follow-up - 2 Weeks New Orders: 2D ECHO - 3 Weeks BASIC METABOLIC PROF - 3 Weeks CBC NO DIFF - 3 Weeks New Medications: Aspirin (Aspirin Low Strength) 81 Mg Chew 81 MG PO DAILY Blood Clot Prevention #90 Ref 5 EA Docusate Sodium (Dok) 100 Mg Cap 100 MG PO BID Constipation #28 Ref 0 CAP Metoprolol Tartrate (Metoprolol Tartrate) 25 Mg Tab 12.5 MG PO Q12HR Blood Pressure Management #60 Ref 3 TAB Multiple Vitamins W/ Minerals (Thera M Plus) 1 Tab 1 TAB PO DAILY Nutritional Supplement #100 Ref 6 TAB Pantoprazole (Pantoprazole) 40 Mg Tab 40 MG PO DAILY@06 Prevent Stress Ulcers #14 Ref 0 TAB Continued Medications: Acyclovir (Acyclovir) 200 Mg Cap 200 MG PO Q4HR Mgmt Viral Infection Ref 0 CAP Alprazolam (Alprazolam) 0.5 Mg Tab 0.25 MG PO BID PRN ANXIETY Ref 0 TAB Amphetamine-Dextroamphetamine (Adderall) 20 Mg Tab 20 MG PO BID Avoid late evening doses. Space doses at least 4 to 6 hours if more than once/day dosing. Hyperactivity Control #60 Ref 0 TAB Bupropion HCl ER 24 HR (Bupropion HCl ER 24 HR) 300 Mg Tab 300 MG PO DAILY Control Depression Ref 0 TAB Cyanocobalamin (B12) 1,000 Mcg Tab Unknown Dose PO DAILY Diclofenac Sodium (Topical) (Vopac Mds) 1.5 % Kit 1 MG TOPICAL DAILY Doxazosin (Cardura) 2 Mg Tab 2 MG PO DAILY #30 Ref 0 TAB Exenatide Pen Inj (Bydureon Pen Inj) 2 Mg Pfpen 2 MG SQ Q7D Blood Sugar Management #4 Ref 0 INJECTION Gabapentin (Gabapentin) 300 Mg Cap 300 MG PO BID #60 Ref 0 CAP Hydrocodone-Acetaminophen (Martin) 10-325 Mg Tab 1 TAB PO Q6H PRN PAIN #30 Ref 0 TAB (This prescription has been renewed) Insulin Lispro (Human) Inj (Humalog Inj) 1,000 Unit/10 Ml Vial 1-9 UNITS SQ ACHS Max dose at bedtime:( )units; sugars< 70,(0)units; sugars 150 -199,(1)unit; sugars 200-249,(3)units; sugars 250-299,(5)units; sugars 300-349,( 7)units; sugars more than 349,(9)units. Blood Sugar Management #1 Ref 0 VIAL Levothyroxine (Synthroid) 112 Mcg Tab 112 MCG PO DAILY Thyroid #30 Ref 0 TAB Tizanidine (Tizanidine) 2 Mg Tab 2 MG PO DAILY Muscle Spasm Ref 0 TAB Venlafaxine (Effexor) 37.5 Mg Tab 37.5 MG PO Q12H #60 Ref 0 TAB Discontinued Medications: Irbesartan (Irbesartan) 300 Mg Tab 300 MG PO DAILY Blood Pressure Management #30 Ref 0 TAB Metoprolol Succinate ER 24 HR (Metoprolol Succinate ER 24 HR) 50 Mg Tab 50 MG PO DAILY #30 Ref 0 TAB Zoey Hines MD Feb 16, 2017 07:57
[2017-02-16] MEDS: SODIUM CHLORIDE 0.9% FLUSH 10 ML FLUSH IV FLUSH SCH ×2 (08:24→21:00)
[2017-02-16] MEDS: FUROSEMIDE 40 MG/4 ML VIAL IV PUSH SCH (08:26)
[2017-02-16] MEDS: DOXAZOSIN MESYLATE 2 MG TAB PO SCH (08:27)
[2017-02-16] MEDS: ASPIRIN 81 MG CHEW TAB PO SCH (08:27)
[2017-02-16] MEDS: DEXTROAMPHETAMINE/AMPHETAMINE 20 MG TAB PO SCH ×2 (08:27→20:56)
[2017-02-16] MEDS: DOCUSATE SODIUM 100 MG CAP PO SCH ×2 (08:27→20:55)
[2017-02-16] MEDS: POTASSIUM CHLORIDE 10 MEQ CONTROLLED RELEASE TAB PO SCH (08:28)
[2017-02-16] MEDS: MAGNESIUM HYDROXIDE SUSP 30 ML CUP PO SCH ×3 (08:29→09:00)
[2017-02-16] MEDS: POLYETHYLENE GLYCOL 17 GM PKG PO SCH (08:29)
[2017-02-16] MEDS: GABAPENTIN 300 MG CAP PO SCH ×2 (08:29→20:57)
[2017-02-16] MEDS: METOPROLOL TARTRATE 25 MG TAB PO SCH ×2 (08:29→20:55)
[2017-02-16] MEDS: MULTIVITAMINS/MINERALS THERAPEUTIC TAB PO SCH (08:30)
[2017-02-16] MEDS: buPROPion HCL 150 MG SUSTAINED RELEASE TAB PO SCH ×2 (08:30→20:56)
[2017-02-16] MEDS: MUPIROCIN 2% OINT 1 APPLIC/GM SYR EACH NARE SCH (08:31)
[2017-02-16] MEDS: VENLAFAXINE HCL XR 75 MG CAP PO SCH (08:34)
[2017-02-16] MEDS ORDERED: AMIODARONE INJ 150 MG in DEXTROSE 5% IN WATER 100ML INJ 97 ML IV ONE ×2 (08:45)
--- NOTE | 2017-02-16 08:48 | PD.CAR.PN ---
CVT Progress Note CVT: POD #: 3 Subjective/Hospital Course: pt seen and evaluated , for AVR in am full note dictated sts data discussed with pt RISK SCORES About the STS Risk Calculator Procedure: AV Replacement Risk of Mortality: 3.174% Morbidity or Mortality: 19.692% Long Length of Stay: 9.44% Short Length of Stay: 27.277% Permanent Stroke: 1.608% Prolonged Ventilation: 12.274% DSW Infection: 0.16% Renal Failure: 4.813% Reoperation: 9.085% 02/14/17 c/o incisional pain 02/15/17 Doing well, improving 02/16/17 Patient was set for discharge today, but developed AFIB - asymptomatic. Objective: Vital Signs Date Time Temp Pulse Resp B/P Pulse Ox O2 Delivery O2 Flow Rate FiO2 02/16/17 08:35 95 21 02/16/17 06:19 18 02/16/17 06:00 75 02/16/17 05:00 76 02/16/17 04:00 83 02/16/17 03:10 83 02/16/17 03:00 98.2 84 18 140/83 96 02/16/17 02:00 83 02/16/17 01:00 80 02/16/17 00:00 82 02/15/17 23:00 90 02/15/17 23:00 98.2 95 20 111/69 97 02/15/17 22:00 94 02/15/17 21:00 92 02/15/17 20:02 95 21 02/15/17 20:00 92 02/15/17 19:00 97.8 88 18 139/78 97 02/15/17 19:00 84 02/15/17 18:00 82 02/15/17 17:00 85 02/15/17 16:00 92 02/15/17 15:00 98.2 90 15 119/75 96 02/15/17 14:00 79 02/15/17 13:41 98 Nasal Cannula 2.00 02/15/17 13:00 73 02/15/17 12:45 74 26 121/71 95 02/15/17 12:30 74 26 114/60 96 02/15/17 12:15 75 26 113/65 96 02/15/17 12:00 76 02/15/17 12:00 77 26 115/60 95 02/15/17 11:45 73 26 101/58 95 02/15/17 11:30 76 26 95/60 91 02/15/17 11:15 76 26 113/68 91 02/15/17 11:00 98.3 78 15 102/62 90 02/15/17 10:00 85 02/15/17 10:00 16 02/15/17 09:00 80 Labs: Laboratory Tests Test 02/16/17 05:15 Sodium Level 140 MEQ/L (136-145) Potassium Level 4.0 MEQ/L (3.5-5.1) Chloride Level 105 MEQ/L (98-107) Carbon Dioxide Level 30.0 MEQ/L (21.0-32.0) Anion Gap 5 MEQ/L (5-15) Blood Urea Nitrogen 25 MG/DL (7-18) Creatinine 0.99 MG/DL (0.50-1.00) Estimat Glomerular Filtration 56 ML/MIN (>89) Rate Random Glucose 87 MG/DL (74-106) Calcium Level 8.5 MG/DL (8.5-10.1) Result Diagram: 02/15/1730 02/16/17 0515 Cardiovascular: Tachy at ~130, IRR Telemetry: AFIB Pulmonary: CTA Plan: Will treat with amiodarone bolus and start PO dosing Mag sulfate 2 gms Hold d/c until tomorrow. CBC/BMP in AM Zoey Hines MD Feb 16, 2017 08:48
[2017-02-16] MEDS: AMIODARONE 200 MG TAB PO SCH ×2 (09:40→20:56)
[2017-02-16] MEDS: MAGNESIUM SULFATE 1 GM PREMIX 100 ML IV SCH ×2 (09:42→11:05)
[2017-02-16] MEDS: RESP: ALBUTEROL 2.5 MG/IPRATROPIUM 0.5 MG NEB (PRN) NEB ×2 (12:08→19:58)
[2017-02-16] MEDS: oxyCODONE/ACETAMINOPHEN 5 MG/325 MG TAB PO PRN (16:47)
[2017-02-16] MEDS: SENNOSIDES 8.6 MG TAB PO SCH (20:57)
[2017-02-17] VITALS (15 sets, daily range): BP systolic 113–133; BP diastolic 64–84; PULSE 74–94; RESP 18; TEMP 98.6–98.9; O2SAT 94–99
[2017-02-17] MEDS: oxyCODONE/ACETAMINOPHEN 10 MG/325 MG TAB PO PRN ×3 (00:06→09:47)
[2017-02-17 05:04] LABS: HEMATOCRIT 29.3 % (35.0-46.0); MEAN CELL VOLUME 86.5 FL (80.0-100.0); MEAN CORPUSCULAR HEMOGLOBIN 29.3 PG (27.0-34.0); MEAN CORPUSCULAR HGB CONC 33.8 % (32.0-36.0); PLATELET COUNT 112 TH/MM3 (150-450); RED BLOOD COUNT 3.38 MIL/MM3 (4.00-5.30); RED CELL DISTRIBUTION WIDTH 15.4 % (11.6-17.2); REVIEW FLAG FINAL; WHITE BLOOD COUNT 6.2 TH/MM3 (4.0-11.0)
[2017-02-17 05:31] LABS: BICARBONATE 30.8 MEQ/L (21.0-32.0); POTASSIUM 4.1 MEQ/L (3.5-5.1)
[2017-02-17] MEDS: PANTOPRAZOLE SOD 40 MG DELAYED RELEASE TAB PO SCH (05:34)
[2017-02-17] MEDS: LEVOTHYROXINE SODIUM 112 MCG TAB PO SCH (05:34)
[2017-02-17] MEDS: INSULIN ASPART SUPPLEMENTAL SCALE SQ SCH ×2 (06:00→11:38)
[2017-02-17] MEDS: MAGNESIUM HYDROXIDE SUSP 30 ML CUP PO SCH (09:00)
[2017-02-17] MEDS: buPROPion HCL 150 MG SUSTAINED RELEASE TAB PO SCH (09:00)
[2017-02-17] MEDS: POLYETHYLENE GLYCOL 17 GM PKG PO SCH (09:00)
[2017-02-17] MEDS: SODIUM CHLORIDE 0.9% FLUSH 10 ML FLUSH IV FLUSH SCH (09:44)
[2017-02-17] MEDS: DEXTROAMPHETAMINE/AMPHETAMINE 20 MG TAB PO SCH (09:44)
[2017-02-17] MEDS: ASPIRIN 81 MG CHEW TAB PO SCH (09:44)
[2017-02-17] MEDS: FUROSEMIDE 40 MG/4 ML VIAL IV PUSH SCH (09:44)
[2017-02-17] MEDS: DOXAZOSIN MESYLATE 2 MG TAB PO SCH (09:45)
[2017-02-17] MEDS: VENLAFAXINE HCL XR 75 MG CAP PO SCH (09:45)
[2017-02-17] MEDS: AMIODARONE 200 MG TAB PO SCH (09:45)
[2017-02-17] MEDS: DOCUSATE SODIUM 100 MG CAP PO SCH (09:45)
[2017-02-17] MEDS: GABAPENTIN 300 MG CAP PO SCH (09:46)
[2017-02-17] MEDS: METOPROLOL TARTRATE 25 MG TAB PO SCH (09:46)
[2017-02-17] MEDS: POTASSIUM CHLORIDE 10 MEQ CONTROLLED RELEASE TAB PO SCH (09:46)
[2017-02-17] MEDS: MULTIVITAMINS/MINERALS THERAPEUTIC TAB PO SCH (09:47)
[2017-02-17] MEDS ORDERED: AMIO200T PO (10:37)
== END 2017-02-17 13:30 | disposition home health service (06) | DRG 217 ==
LOC: HDOC 06:45 → HDIC 06:46 → HDOC 15:09 → HDIC 15:09 → HIMW 17:30 → HCVR 02-13 11:56 → HCIN 02-14 13:11
PROVIDERS: ADMIT Radiology Vascular & Interventional Radiology; ATTEND Radiology Vascular & Interventional Radiology
PROC: 4A023N8 Measurement of Cardiac Sampling and Pressure, Bilateral, Percutaneous Approach (ICD-10-PCS; 2017-02-11)
PROC: B2111ZZ Fluoroscopy of Multiple Coronary Arteries using Low Osmolar Contrast (ICD-10-PCS; 2017-02-11)
PROC: B41F1ZZ Fluoroscopy of Right Lower Extremity Arteries using Low Osmolar Contrast (ICD-10-PCS; 2017-02-11)
PROC: B246ZZ4 Ultrasonography of Right and Left Heart, Transesophageal (ICD-10-PCS; 2017-02-13)
PROC: 5A1221Z Performance of Cardiac Output, Continuous (ICD-10-PCS; 2017-02-13)
PROC: 02RF08Z Replacement of Aortic Valve with Zooplastic Tissue, Open Approach (ICD-10-PCS; principal; 2017-02-13 07:15)
DX: I08.3 Combined rheumatic disorders of mitral, aortic and tricuspid valves (principal); I50.30 Unspecified diastolic (congestive) heart failure; I13.0 Hypertensive heart and chronic kidney disease with heart failure and stage 1 through stage 4 chronic kidney disease, or unspecified chronic kidney disease; E11.22 Type 2 diabetes mellitus with diabetic chronic kidney disease; I27.2 Other secondary pulmonary hypertension; I25.10 Atherosclerotic heart disease of native coronary artery without angina pectoris; I48.91 Unspecified atrial fibrillation; N18.9 Chronic kidney disease, unspecified; I12.9 Hypertensive chronic kidney disease with stage 1 through stage 4 chronic kidney disease, or unspecified chronic kidney disease; E03.9 Hypothyroidism, unspecified; E78.5 Hyperlipidemia, unspecified; G47.30 Sleep apnea, unspecified; Z82.49 Family history of ischemic heart disease and other diseases of the circulatory system; Z85.43 Personal history of malignant neoplasm of ovary; Z98.84 Bariatric surgery status
CPT/HCPCS: 36430; 71010; 71020; 71250; 76937; 80048; 80053; 81001; 82810; 82948; 83735; 85002; 85014; 85025; 85027; 85610; 85730; 86850; 86900; 86901; 86920; 87641; 88305; 88311; 93005; 93306; 93318; 93460; 94002; 94010; 94640; 94664; 94667; 94668; C1713; C1760; C1769; C1893; C9248; G0269; J0131; J0282; J0690; J1200; J1644; J1720; J1815; J1940; J2150; J2250; J2270; J2310; J2370; J2710; J2720; J2930; J3010; J3370; J3475; J3480; J7040; J7050; J7120; P9016; P9047; Q9967

== ENCOUNTER 2017-03-11 11:46 | Observation (INO) | payer OTHER, MEDICARE ==
[~2017-03-11] VITALS: Ht 152.4 cm; Wt 55.0 kg
[~2017-03-11 11:46] MED LIST: ACYC200C66 PO; ADDE20 PO; ALPR0.5T3 PO; AMIO200T PO; ASPI81CH25 PO; BUPR300T PO; CARD2TAB PO; CYAN1TAB24 PO; DICL1KIT TOPICAL; DOCU1CAP39 PO; EXEN1INJ SQ; GABA300C5 PO; HUMALOG SQ; HYDR-3366 PO; METO25TA3 PO; PANT40TA3 PO; SYNT112T PO; THERM PO; TIZA2TAB PO; VENL37.5 PO
[2017-03-11 11:51] VITALS: BP 101/67; PULSE 93; RESP 15; TEMP 98.2; O2SAT 98
[2017-03-11] MEDS ORDERED: SODIUM CHLORIDE 0.9% FLUSH 10 ML FLUSH IVF PRN (12:00)
[2017-03-11] MEDS ORDERED: ACETAMINOPHEN/HYDROcodone 325 MG/5 MG TAB PO ONE (12:15)
--- NOTE | 2017-03-11 12:18 | PD ---
HPI Chief Complaint: Chest Pain Time Seen by Provider: 12:13 Travel History International Travel<30 days: No Contact w/Intl Traveler<30days: No Traveled to known affect area: No History of Present Illness HPI 66-year-old female that presents to the ED for evaluation of left-sided chest x- ray to the back. Per patient his been started yesterday. She denies any history of heart disease other than bowel be she actually had an aortic valve replacement by Dr. Dobson. Per patient he was blowing. She denies any issues with the surgery so far is the first time she's actually had pain. Per patient she does get short of breath with walking with his been ongoing since the surgery. Per patient she tried to call her doctor yesterday and told her to come to the office today but today when she called the office and told her to the surgeon on the hospital during surgery. She was told to come here. She states that the chest pain worsens with deep breaths. Denies any cough or runny nose. No fevers chills or sweats. Per patient 7 out of 10. She has been taking some Lortab with some relief. She does have allergies to contrast media and iodine. Pain radiates to the back. PFSH Past Medical History Arthritis: Yes (Hands, back) Depression: Yes (Currently takes meds for depression) Heart Rhythm Problems: No Cancer: Yes (OVARIAN) Cardiovascular Problems: Yes (AORTIC VALVE REPLACED) High Cholesterol: No Chemotherapy: Yes (OVARIAN CANCER) Chest Pain: No Congestive Heart Failure: No Diabetes: Yes (TYPE 2) Endocrine: Yes Gastrointestinal Disorders: No GERD: No Glaucoma: No Genitourinary: Yes Hepatitis: Yes (HX OF HEP A) Hiatal Hernia: Yes (See surgical comments) Hypertension: Yes Immune Disorder: No Kidney Stones: Yes Musculoskeletal: Yes Neurologic: No Psychiatric: Yes Reproductive: No Respiratory: Yes (PNA) Integumentary: No Radiation Therapy: No Renal Failure: Yes (CKD III) Thyroid Disease: Yes (HYPOTHYROID) Ulcer: No Past Surgical History Abdominal Surgery: Yes (See note below) Cardiac Surgery: No Ear Surgery: No Endocrine Surgery: No Eye Surgery: No Genitourinary Surgery: Yes (Hemorrhoidectomy, , right nephrectomy 2010 ) Gynecologic Surgery: Yes (Total hysterectomy with oophrectomy) Hysterectomy: Yes Oral Surgery: No Thoracic Surgery: No Social History Alcohol Use: No Tobacco Use: No Substance Use: No Allergies-Medications (Allergen,Severity, Reaction): Coded Allergies: Adhesives (Verified Allergy, Severe, 03/11/17) Contrast Media (Verified Allergy, Severe, 03/11/17) Iodine (Verified Allergy, Severe, 03/11/17) Reported Meds & Prescriptions Reported Meds & Active Scripts Active Pantoprazole (Pantoprazole Sodium) 40 Mg Tab 40 Mg PO DAILY@06 Thera M Plus (Multivitamins/Minerals Therapeutic) 1 Tab 1 Tab PO DAILY Metoprolol Tartrate 25 Mg Tab 12.5 Mg PO Q12HR Aspirin Low Strength (Aspirin) 81 Mg Chew 81 Mg PO DAILY Lebeau (Hydrocodone-Acetaminophen) 10-325 Mg Tab 1 Tab PO Q6H PRN Reported Effexor (Venlafaxine HCl) 37.5 Mg Tab 37.5 Mg PO Q12H Tizanidine (Tizanidine HCl) 2 Mg Tab 2 Mg PO DAILY Synthroid (Levothyroxine Sodium) 112 Mcg Tab 112 Mcg PO DAILY Bupropion HCl ER 24 HR (Bupropion HCl) 300 Mg Tab 300 Mg PO DAILY B12 (Cyanocobalamin) 1,000 Mcg Tab Unknown Dose PO DAILY Alprazolam 0.5 Mg Tab 0.25 Mg PO BID PRN Acyclovir 200 Mg Cap 200 Mg PO Q4HR Vopac Mds (Diclofenac Sodium (Topical)) 1.5 % Kit 1 Mg TOPICAL DAILY Cardura (Doxazosin Mesylate) 2 Mg Tab 2 Mg PO DAILY Review of Systems Except as stated in HPI: all other systems reviewed are Neg Physical Exam Narrative GENERAL: SKIN: Warm and dry. HEAD: Atraumatic. Normocephalic. EYES: Pupils equal and round. No scleral icterus. No injection or drainage. ENT: No nasal bleeding or discharge. Mucous membranes pink and moist. Tongue is midline. No uvula deviation. NECK: Trachea midline. No JVD. CARDIOVASCULAR: Regular rate and rhythm. No murmurs, S3, S4. Chest pain is not reproducible with touch. RESPIRATORY: No accessory muscle use. Clear to auscultation. Breath sounds equal bilaterally. GASTROINTESTINAL: Abdomen soft, non-tender, nondistended. Hepatic and splenic margins not palpable. MUSCULOSKELETAL: Extremities without clubbing, cyanosis, or edema. No obvious deformities. Full range of motion of the upper and lower extremities bilaterally. 2+ pulses bilaterally. Neurovascular intact. NEUROLOGICAL: Awake and alert. No obvious cranial nerve deficits. Motor grossly within normal limits. Five out of 5 muscle strength in the arms and legs. Normal speech. PSYCHIATRIC: Appropriate mood and affect; insight and judgment normal. Data Data Last Documented VS Vital Signs Date Time Temp Pulse Resp B/P Pulse Ox O2 Delivery O2 Flow Rate FiO2 03/11/17 15:59 1 03/11/17 12:37 85 98/65 100 Nasal Cannula 2 03/11/17 11:51 98.2 Orders Electrocardiogram (03/11/17 11:56) Basic Metabolic Panel (Bmp) (03/11/17 11:56) B-Type Natriuretic Peptide (03/11/17 11:56) Ckmb (Isoenzyme) Profile (03/11/17 11:56) Complete Blood Count With Diff (03/11/17 11:56) Magnesium (Mg) (03/11/17 11:56) Prothrombin Time / Inr (Pt) (03/11/17 11:56) Act Partial Throm Time (Ptt) (03/11/17 11:56) Troponin I (03/11/17 11:56) Lipase (03/11/17 11:56) Chest, Single Ap (03/11/17 11:56) Ecg Monitoring (03/11/17 11:56) Bilateral Bp Monitoring (03/11/17 11:56) Iv Access Insert/Monitor (03/11/17 11:56) Oximetry (03/11/17 11:56) Oxygen Administration (03/11/17 11:56) Sodium Chloride 0.9% Flush (Ns Flush) (03/11/17 12:00) Blood Culture (03/11/17 11:57) D-Dimer (03/11/17 12:11) Acetamin-Hydrocod 325-5 Mg (Lebeau 5-325 (03/11/17 12:15) Ventilation & Perfusion Scan (03/11/17 ) Echo 2d Comp With Doppler (03/11/17 ) Echo 2d Comp With Doppler (03/11/17 15:52) Morphine Inj (Morphine Inj) (03/11/17 15:56) Ondansetron Inj (Zofran Inj) (03/11/17 16:00) Admit Order (Ed Use Only) (03/11/17 16:18) Labs Laboratory Tests Test 03/11/17 12:15 White Blood Count 7.5 TH/MM3 Red Blood Count 3.94 MIL/MM3 Hemoglobin 11.6 GM/DL Hematocrit 34.6 % Mean Corpuscular Volume 87.7 FL Mean Corpuscular Hemoglobin 29.3 PG Mean Corpuscular Hemoglobin 33.4 % Concent Red Cell Distribution Width 14.9 % Platelet Count 181 TH/MM3 Mean Platelet Volume 8.7 FL Neutrophils (%) (Auto) 74.4 % Lymphocytes (%) (Auto) 10.9 % Monocytes (%) (Auto) 10.6 % Eosinophils (%) (Auto) 3.8 % Basophils (%) (Auto) 0.3 % Neutrophils # (Auto) 5.6 TH/MM3 Lymphocytes # (Auto) 0.8 TH/MM3 Monocytes # (Auto) 0.8 TH/MM3 Eosinophils # (Auto) 0.3 TH/MM3 Basophils # (Auto) 0.0 TH/MM3 CBC Comment DIFF FINAL Differential Comment Prothrombin Time 10.7 SEC Prothromb Time International 1.0 RATIO Ratio Activated Partial 25.0 SEC Thromboplast Time D-Dimer Quantitative (PE/DVT) 1.03 MG/L FEU Sodium Level 134 MEQ/L Potassium Level 4.3 MEQ/L Chloride Level 101 MEQ/L Carbon Dioxide Level 23.9 MEQ/L Anion Gap 9 MEQ/L Blood Urea Nitrogen 20 MG/DL Creatinine 1.65 MG/DL Estimat Glomerular Filtration 31 ML/MIN Rate Random Glucose 192 MG/DL Calcium Level 8.9 MG/DL Magnesium Level 1.8 MG/DL Total Creatine Kinase 38 U/L Troponin I 0.09 NG/ML B-Type Natriuretic Peptide 151 PG/ML Lipase 85 U/L [facility] Medical Decision Making Medical Screen Exam Complete: Yes Emergency Medical Condition: Yes Medical Record Reviewed: Yes Interpretation(s) CBC & BMP Diagram 03/11/17 12:15 troponin negative CKMB negative EKG shows sinus rhythm with no sign of acute ischemia or arrhythmia. Read by me and attending. He D-dimer negative. Last Impressions Chest X-Ray 03/11/17 8176 Signed Impressions: Service Date/Time: Saturday, March 11, 2017 12:32 - CONCLUSION: Normal examination except for minimal scarring left lower lobe. Toribio Moreno MD Lung Scan-[facility] Nuclear Medicine 03/11/17 0000 Signed Impressions: Service Date/Time: Saturday, March 11, 2017 14:49 - CONCLUSION: Normal examination. Toribio Moreno MD Differential Diagnosis Chest pain versus a typical chest pain versus pneumonia versus PE versus ACS versus pancreatitis versus pleurisy Narrative Course 66-year-old female that presents to the ED for evaluation of left sided chest pain for his back. Patient was properly examined and was found to have signs and symptoms of unclear etiology at this time. Labs and imaging were ordered. Patient was given Lortab for pain. Labs and imaging showed no sign of acute disease. Case was discussed with Dr. Hines who recommends further workup if needed. She does recommend specifically an echocardiogram. Patient was reassessed after labs and imaging done and she still complained of a lot of pain. Patient did have positive troponin of 0.09. I doubt that this is an STEMI but because of her comorbidities and her knee for an echocardiogram I do recommend admission obs for further workup of the chest pain. Because she just had cardiac surgery at do not believe that she will be a good candidate for chest pain center. We'll admit to the medical team. Patient is [employer]. Dr Baker agrees to admission. Diagnosis Primary Impression: Chest pain in adult Additional Impression: S/P AVR (aortic valve replacement) Neo Bobby Mar 11, 2017 12:18
[2017-03-11 12:37] VITALS: BP_SYST 94; BP_SYST 98; BP_DIAS 65; BP_DIAS 67; PULSE 84; PULSE 85; RESP 16; O2SAT 100
[2017-03-11 12:38] LABS: AUTOMATED NEUTROPHIL # 5.6 TH/MM3 (1.8-7.7); BASOPHIL % 0.3 % (0.0-2.0); EOSINOPHIL # 0.3 TH/MM3 (0-0.4); EOSINOPHIL % 3.8 % (0.0-4.0); HEMATOCRIT 34.6 % (35.0-46.0); HEMO FLAGS DIFF FINAL; LYMPH % 10.9 % (9.0-44.0); LYMPHOCYTE # 0.8 TH/MM3 (1.0-4.8); MEAN CELL VOLUME 87.7 FL (80.0-100.0); MEAN CORPUSCULAR HEMOGLOBIN 29.3 PG (27.0-34.0); MEAN CORPUSCULAR HGB CONC 33.4 % (32.0-36.0); MONO % 10.6 % (0.0-8.0); NEUT % 74.4 % (16.0-70.0); PLATELET COUNT 181 TH/MM3 (150-450); RED BLOOD COUNT 3.94 MIL/MM3 (4.00-5.30); RED CELL DISTRIBUTION WIDTH 14.9 % (11.6-17.2); WHITE BLOOD COUNT 7.5 TH/MM3 (4.0-11.0)
[2017-03-11 12:50] LABS: PROTHROMBIN TIME - PATIENT 10.7 SEC (9.8-11.6)
--- NOTE | 2017-03-11 12:51 | RADRPT ---
EXAM DATE/TIME: 03/11/2017 12:32 [facility] COMPARISON: CHEST SINGLE AP, February 15, 2017, 3:11. INDICATIONS : Chest pain. MEDICAL HISTORY : Diabetes mellitus type II. SURGICAL HISTORY : Valve replacement. ENCOUNTER: Subsequent ACUITY: 1 day PAIN SCORE: 5/10 LOCATION: Left chest FINDINGS: A single view of the chest demonstrates the lungs to be symmetrically aerated without evidence of mas s, infiltrate or effusion. The cardiomediastinal contours are unremarkable. Osseous structures are intact. Previously sternotomy and prosthetic aortic valve. CONCLUSION: Normal examination except for minimal scarring left lower lobe. Toribio Moreno MD on March 11, 2017 at 12:48 Board Certified Radiologist. This report was verified electronically.
[2017-03-11 12:58] LABS: BICARBONATE 23.9 MEQ/L (21.0-32.0); MAGNESIUM 1.8 MG/DL (1.5-2.5); POTASSIUM 4.3 MEQ/L (3.5-5.1)
--- NOTE | 2017-03-11 15:35 | RADRPT ---
EXAM DATE/TIME: 03/11/2017 14:49 [facility] COMPARISON: No previous studies available for comparison. INDICATIONS : Chest pain. Dyspnea upon exertion. DOSE: 8.4 mCi Tc99m MAA IV 1 mCi Tc99m DTPA aerosol MEDICAL HISTORY : Diabetes mellitus type 2. Hypertension. Hernia, hiatal. SURGICAL HISTORY : Hysterectomy. ENCOUNTER: Initial ACUITY: 2 days PAIN SCALE: 4/10 LOCATION: Left chest TECHNIQUE: Following five minutes of tidal breathing of DTPA aerosol, planar images of the lungs were performed in eight projections. The patient was then injected with MAA, and eight-view perfusion scan was perf ormed. FINDINGS: There is a homogeneous pattern of aerosol delivery to the periphery of both lungs. No focal ventilat ory defects are seen. The perfusion lung scan demonstrates a homogenous pattern of uptake in both lungs. No segmental or s ubsegmental defects are seen. CONCLUSION: Normal examination. Toribio Moreno MD on March 11, 2017 at 15:33 Board Certified Radiologist. This report was verified electronically.
[2017-03-11] MEDS ORDERED: MORPHINE SULFATE 8 MG/ML INJ IV PUSH STA (15:56)
[2017-03-11] MEDS ORDERED: ONDANSETRON HCL 4 MG/2 ML VIAL IV PUSH ONE (16:00)
[2017-03-11 16:29] VITALS: BP 112/71; PULSE 84; RESP 15; O2SAT 100
[2017-03-11] MEDS ORDERED: SENNOSIDES 8.6 MG TAB PO PRN (16:45)
[2017-03-11] MEDS ORDERED: MAGNESIUM HYDROXIDE SUSP 30 ML CUP PO PRN (16:45)
[2017-03-11] MEDS ORDERED: NITROGLYCERIN 2% OINT 1 GM PACKET TOPICAL PRN (16:45)
[2017-03-11] MEDS ORDERED: SODIUM CHLORIDE 0.9% FLUSH 10 ML FLUSH IV FLUSH PRN (16:45)
[2017-03-11] MEDS ORDERED: LACTULOSE SYRUP 20 GM/30 ML CUP PO PRN (16:45)
[2017-03-11] MEDS ORDERED: BISACODYL 10 MG SUPP RECTAL PRN (16:45)
[2017-03-11] MEDS ORDERED: NALOXONE HCL 0.4 MG/ML AMP IV PRN (16:45)
[2017-03-11 17:02] VITALS: BP 118/62; PULSE 93; RESP 20; TEMP 99; O2SAT 96
[2017-03-11 17:16] VITALS: BP 120/64; PULSE 84; RESP 18; O2SAT 99
[2017-03-11] MEDS ORDERED: DICL1GEL3 TOPICAL (17:27)
[2017-03-11 17:54] VITALS: BP 117/65; PULSE 86; RESP 18; O2SAT 99
[2017-03-11] MEDS: DOCUSATE SODIUM 50 MG/SENNA 8.6 MG TAB PO SCH (20:56)
[2017-03-11] MEDS: SODIUM CHLORIDE 0.9% FLUSH 10 ML FLUSH IV FLUSH SCH (20:56)
[2017-03-11] MEDS ORDERED: HYDROmorphone HCL PF 1 MG/ML VIAL IV PUSH PRN (23:15)
--- NOTE | 2017-03-11 23:33 | HHI.HP ---
[facility] Primary Care Physician Hannah Chavarria MD Admission Diagnosis chest pain, r/o ACS, recent valve replacement Diagnoses: Chief Complaint: chest pain and dizziness Travel History International Travel<30 Days: No Contact w/Intl Traveler <30 Da: No Traveled to Known Affected Are: No History of Present Illness Written by AMBER Cutler acting as scribe for [Jane] on 03/11/17 at 23: 14. 66 y/o female with a history of HTN, DM, Arthritis, anxiety, depression, hypothyroidism, ckd, and hyperlipidemia presented to the ED with complaints of chest pain for the last 2 days. She states Saturday morning she was awaken out of her sleep with this pain at 4:30 am. She states the pain is left chest pain 10/ 10 with radiation to her back, worse with breathing. 4 weeks ago she had a AVR cow replacement done. She states she has had a low grade fever, dizziness when walking down the stairs and sob. Denies any nausea, vomiting, or abdominal pain. She states she has lost 13 lbs in 3-4 weeks, but she has lost her edema in her legs. She states after the surgery is when the weight loss started. PCP is Chiara Chavarria Cardiothoracic surgeon: Dr. Hines Review of Systems Constitutional: COMPLAINS OF: Fever, Weight loss, Dizziness, DENIES: Chills Respiratory: COMPLAINS OF: Shortness of breath, DENIES: Cough, Sputum production Cardiovascular: COMPLAINS OF: Chest pain, Lower Extremity Edema Gastrointestinal: DENIES: Abdominal pain, Black stools, Bloody stools, Constipation, Diarrhea, Nausea, Vomiting Genitourinary: DENIES: Hematuria, Dysuria Musculoskeletal: DENIES: Back pain, Neck pain Integumentary: DENIES: Rash Hematologic/lymphatic: DENIES: Lymphadenopathy Immunologic/allergic: DENIES: Urticaria Neurologic: DENIES: Headache Past Family Social History Past Medical History HTN DM Hyperlipidemia Hypothyroidism Arthritis Anxiety Depression CKD Kidney stones Sleep apnea Ovarian cancer with chemo 2010 RUE DVT Past Surgical History Nephrectomy 2011 Hysterectomy with oophorectomy Hemorrhoidectomy Gastric bypass Mandie en y Tummy tuck Breast reduction and lift Reported Medications Reported Meds & Active Scripts Active Pantoprazole (Pantoprazole Sodium) 40 Mg Tab 40 Mg PO DAILY@06 Metoprolol Tartrate 25 Mg Tab 12.5 Mg PO Q12HR Aspirin Low Strength (Aspirin) 81 Mg Chew 81 Mg PO DAILY [place] (Hydrocodone-Acetaminophen) 10-325 Mg Tab 1 Tab PO Q6H PRN Reported Diclofenac Topical 3 % Gel 1 Applic TOPICAL QID Effexor (Venlafaxine HCl) 37.5 Mg Tab 37.5 Mg PO Q12H Tizanidine (Tizanidine HCl) 2 Mg Tab 2 Mg PO HS Synthroid (Levothyroxine Sodium) 112 Mcg Tab 112 Mcg PO DAILY Bupropion HCl ER 24 HR (Bupropion HCl) 300 Mg Tab 300 Mg PO DAILY B12 (Cyanocobalamin) 1,000 Mcg Tab Unknown Dose PO DAILY Alprazolam 0.5 Mg Tab 0.25 Mg PO BID PRN Acyclovir 200 Mg Cap 200 Mg PO Q4HR Cardura (Doxazosin Mesylate) 2 Mg Tab 2 Mg PO DAILY Allergies: Coded Allergies: Adhesives (Verified Allergy, Severe, 03/11/17) Contrast Media (Verified Allergy, Severe, 03/11/17) Iodine (Verified Allergy, Severe, 03/11/17) Active Ordered Medications Current Medications Medications (Trade) Dose Ordered Sig/Suzanne Route Start Time Stop Time Status Last Admin (NS Flush) 2 ml UNSCH PRN IV FLUSH 03/11/17 16:45 (NS Flush) 2 ml BID IV FLUSH 03/11/17 21:00 (Narcan Inj) 0.4 mg UNSCH PRN IV 03/11/17 16:45 (Tisha-Colace) 1 tab BID PO 03/11/17 21:00 (Milk Of Magnesia Liq) 30 ml Q12H PRN PO 03/11/17 16:45 (Senokot) 17.2 mg Q12H PRN PO 03/11/17 16:45 (Dulcolax Supp) 10 mg DAILY PRN RECTAL 03/11/17 16:45 (Lactulose Liq) 30 ml DAILY PRN PO 03/11/17 16:45 (Nitroglycerin 2% Oint) 0.5 inch Q6HR PRN TOPICAL 03/11/17 16:45 03/11/17 17:53 Family History Brother: Lung cancer Dad: Heart disease Sister: Cervical cancer Grandmother: Cervical cancer Social History Tobacco use: Denies Alcohol use: Denies Illicit drug use: Denies Physical Exam Vital Signs Vital Signs Date Time Temp Pulse Resp B/P Pulse Ox O2 Delivery O2 Flow Rate FiO2 03/11/17 17:54 86 18 117/65 99 Nasal Cannula 2 03/11/17 17:16 84 18 120/64 99 Nasal Cannula 2 03/11/17 17:02 99.0 93 20 118/62 96 03/11/17 16:29 84 15 112/71 100 Room Air 03/11/17 15:59 1 03/11/17 12:37 85 16 98/65 100 Nasal Cannula 2 03/11/17 12:37 84 16 98/65 100 Nasal Cannula 2 03/11/17 12:37 94/67 03/11/17 12:37 87 15 98 Nasal Cannula 2 03/11/17 12:37 100 Nasal Cannula 2 03/11/17 11:51 98.2 93 15 101/67 98 Physical Exam GENERAL: This is a well-nourished, well-developed patient, who is having chest pain SKIN: No rashes, ecchymoses or lesions. Cool and dry. HEAD: Atraumatic. Normocephalic. EYES: Pupils equal round and reactive. Extraocular motions intact. ENT: Nose without bleeding, purulent drainage or septal hematoma. Airway patent. NECK: Trachea midline. No JVD or lymphadenopathy. CARDIOVASCULAR: Regular rate and rhythm without murmurs, gallops, or rubs. RESPIRATORY: Clear to auscultation. Breath sounds equal bilaterally. No wheezes , rales, or rhonchi. GASTROINTESTINAL: Abdomen soft, non-tender, nondistended. No hepato-splenomegaly , or palpable masses. No guarding. MUSCULOSKELETAL: Extremities without clubbing, cyanosis, or edema. No joint tenderness, effusion, or edema noted. No calf tenderness. NEUROLOGICAL: Awake and alert. Motor and sensory grossly within normal limits. Normal speech. Laboratory Laboratory Tests Test 03/11/17 12:15 White Blood Count 7.5 Red Blood Count 3.94 Hemoglobin 11.6 Hematocrit 34.6 Mean Corpuscular Volume 87.7 Mean Corpuscular Hemoglobin 29.3 Mean Corpuscular Hemoglobin 33.4 Concent Red Cell Distribution Width 14.9 Platelet Count 181 Mean Platelet Volume 8.7 Neutrophils (%) (Auto) 74.4 Lymphocytes (%) (Auto) 10.9 Monocytes (%) (Auto) 10.6 Eosinophils (%) (Auto) 3.8 Basophils (%) (Auto) 0.3 Neutrophils # (Auto) 5.6 Lymphocytes # (Auto) 0.8 Monocytes # (Auto) 0.8 Eosinophils # (Auto) 0.3 Basophils # (Auto) 0.0 CBC Comment DIFF FINAL Differential Comment Prothrombin Time 10.7 Prothromb Time International 1.0 Ratio Activated Partial 25.0 Thromboplast Time D-Dimer Quantitative (PE/DVT) 1.03 Sodium Level 134 Potassium Level 4.3 Chloride Level 101 Carbon Dioxide Level 23.9 Anion Gap 9 Blood Urea Nitrogen 20 Creatinine 1.65 Estimat Glomerular Filtration 31 Rate Random Glucose 192 Calcium Level 8.9 Magnesium Level 1.8 Total Creatine Kinase 38 Troponin I 0.09 B-Type Natriuretic Peptide 151 Lipase 85 Date/Time Procedure Status Source Growth 03/11/17 12:35 Aerobic Blood Culture Received Blood Peripheral Pending 03/11/17 12:35 Anaerobic Blood Culture Received Blood Peripheral Pending Result Diagram: 03/11/17 1215 03/11/17 1215 Imaging Last Impressions Chest X-Ray 03/11/17 1156 Signed Impressions: Service Date/Time: Saturday, March 11, 2017 12:32 - CONCLUSION: Normal examination except for minimal scarring left lower lobe. Toribio Moreno MD Lung Scan-VQ Nuclear Medicine 03/11/17 0000 Signed Impressions: Service Date/Time: Saturday, March 11, 2017 14:49 - CONCLUSION: Normal examination. Toribio Moreno MD Assessment and Plan Problem List: (1) Chest pain in adult ICD Code: R07.9 Status: Acute (2) Pericarditis ICD Code: I31.9 Status: Acute (3) Diabetes ICD Code: E11.9 Status: Acute (4) HTN (hypertension) ICD Code: I10 Status: Acute Assessment and Plan 66 y/o female with a history of presented to the ED with complaints of chest pain for the last 2 days. Chest pain r/o ACS, recent AVR 4 weeks ago, likely pericarditis vs pleurisy Troponin .09, D dimer 1.03 VQ scan reviewed and shows no PE Last Echo 01/2017 EF 55-60% EKG reviewed and shows NSR -Consult cardiothoracic surgeon, Dr Hines -Serial troponin and EKG -Pain management with IV Dilaudid -Nitropaste ordered -Echo in AM/ r/o pericardial effusions Acute Kidney injury, on CKD, creatine 1.6, baseline 1.1, likely dehydration -Gental IVF -BMP in AM -Avoid nsaids due to kidney function and only having one kidney HTN, chronic, currently stable -Resume home medications Cardura and Metoprolol DM, chronic, not on any medications -Accu checks AC/HS -A1C ordered Hypothyroidism, chronic -Resume home medication: Synthroid DVT prophylaxis: SCDs This note was transcribed by [email or web address] [Enid Aggarwal]. I, Dr. Isabel Lara personally performed the history, physical exam, and medical decision making; and confirmed the accuracy of the information in the transcribed note. Authenticated by Dr. Isabel Lara on 03/11/17 at 23:14. Discussed Condition With Patient Enid Aggarwal Mar 11, 2017 23:33 Isabel Lara MD Mar 12, 2017 07:25
[2017-03-11] MEDS ORDERED: PILL SPLITTER OTHER PRN (23:45)
[2017-03-11] MEDS ORDERED: ALPRAZolam 0.5 MG TAB PO PRN (23:45)
[2017-03-12] VITALS (11 sets, daily range): BP systolic 90–129; BP diastolic 53–72; PULSE 70–86; RESP 16–20; TEMP 97.6–100.4; O2SAT 94–97
[2017-03-12] MEDS: SODIUM CHLOR 0.9% 1000 ML INJ 1,000 ML IV SCH ×2 (00:12→12:10)
[2017-03-12] MEDS: METOPROLOL TARTRATE 25 MG TAB PO SCH ×3 (00:13→20:43)
[2017-03-12] MEDS ORDERED: SODIUM CHLOR 0.9% 250 ML INJ 250 ML IV ONE (03:30)
[2017-03-12] MEDS: LEVOTHYROXINE SODIUM 112 MCG TAB PO SCH (04:53)
[2017-03-12] MEDS: HYDROmorphone HCL PF 1 MG/ML VIAL IV PUSH PRN ×2 (04:53→09:25)
[2017-03-12] MEDS: PANTOPRAZOLE SOD 40 MG DELAYED RELEASE TAB PO SCH (04:53)
[2017-03-12 07:03] LABS: AUTOMATED NEUTROPHIL # 5.8 TH/MM3 (1.8-7.7); BASOPHIL % 0.4 % (0.0-2.0); EOSINOPHIL # 0.3 TH/MM3 (0-0.4); EOSINOPHIL % 3.4 % (0.0-4.0); HEMATOCRIT 34.6 % (35.0-46.0); HEMO FLAGS DIFF FINAL; LYMPH % 11.2 % (9.0-44.0); LYMPHOCYTE # 0.9 TH/MM3 (1.0-4.8); MEAN CELL VOLUME 89.2 FL (80.0-100.0); MEAN CORPUSCULAR HEMOGLOBIN 28.8 PG (27.0-34.0); MEAN CORPUSCULAR HGB CONC 32.3 % (32.0-36.0); MONO % 11.9 % (0.0-8.0); NEUT % 73.1 % (16.0-70.0); PLATELET COUNT 172 TH/MM3 (150-450); RED BLOOD COUNT 3.88 MIL/MM3 (4.00-5.30); RED CELL DISTRIBUTION WIDTH 15.2 % (11.6-17.2); WHITE BLOOD COUNT 7.9 TH/MM3 (4.0-11.0)
[2017-03-12] MEDS ORDERED: HYDROmorphone HCL PF 1 MG/ML VIAL IV PUSH PRN ×2 (07:15→19:45)
[2017-03-12 07:25] LABS: BICARBONATE 27.2 MEQ/L (21.0-32.0); POTASSIUM 4.4 MEQ/L (3.5-5.1)
[2017-03-12] MEDS: SODIUM CHLORIDE 0.9% FLUSH 10 ML FLUSH IV FLUSH SCH ×2 (08:39→21:00)
[2017-03-12] MEDS: ASPIRIN 81 MG CHEW TAB PO SCH (08:41)
[2017-03-12] MEDS: buPROPion HCL 150 MG SUSTAINED RELEASE TAB PO SCH (08:42)
[2017-03-12] MEDS: VENLAFAXINE HCL XR 37.5 MG CAP PO SCH ×2 (08:42→20:43)
[2017-03-12] MEDS: DOCUSATE SODIUM 50 MG/SENNA 8.6 MG TAB PO SCH ×2 (08:42→20:44)
[2017-03-12] MEDS ORDERED: DOXAZOSIN MESYLATE 2 MG TAB PO SCH (09:00)
[2017-03-12] MEDS: COLCHICINE 0.6 MG TAB PO SCH ×2 (09:30→21:00)
--- NOTE | 2017-03-12 09:40 | HHI.PR ---
Subjective Remarks Follow-up for chest pain. The patient has been having worsening chest pain for the past 2-3 days. The pain is alleviated by pain medication. Plan increase exacerbated when she takes a deep breath and whenever she leans forward. She states that she's been having low-grade fevers at home as well as chills for the past 2 days. She has associated shortness of breath. Objective Vitals Vital Signs Date Time Temp Pulse Resp B/P Pulse Ox O2 Delivery O2 Flow Rate FiO2 03/12/17 07:17 99.9 86 17 109/69 96 03/12/17 04:34 82 105/55 03/12/17 03:08 100.4 82 20 91/56 96 03/11/17 17:54 86 18 117/65 99 Nasal Cannula 2 03/11/17 17:16 84 18 120/64 99 Nasal Cannula 2 03/11/17 17:02 99.0 93 20 118/62 96 03/11/17 16:29 84 15 112/71 100 Room Air 03/11/17 15:59 1 03/11/17 12:37 85 16 98/65 100 Nasal Cannula 2 03/11/17 12:37 84 16 98/65 100 Nasal Cannula 2 03/11/17 12:37 94/67 03/11/17 12:37 87 15 98 Nasal Cannula 2 03/11/17 12:37 100 Nasal Cannula 2 03/11/17 11:51 98.2 93 15 101/67 98 Result Diagram: 03/12/17 0556 03/12/17 0556 Imaging Last Impressions Chest X-Ray 03/11/17 1156 Signed Impressions: Service Date/Time: Saturday, March 11, 2017 12:32 - CONCLUSION: Normal examination except for minimal scarring left lower lobe. Toribio Moreno MD Lung Scan-V Nuclear Medicine 03/11/17 0000 Signed Impressions: Service Date/Time: Saturday, March 11, 2017 14:49 - CONCLUSION: Normal examination. Toribio Moreno MD Objective Remarks GENERAL: Well-developed well-nourished. In no acute distress. SKIN: Warm and dry. Well-healed anterior chest surgical incisions. HEENT: Normocephalic. Pupils equal and round. Mucous membranes pink and moist. CARDIOVASCULAR: Regular rate and rhythm. No murmur appreciated. RESPIRATORY: No accessory muscle use. Clear to auscultation. Breath sounds equal bilaterally. GASTROINTESTINAL: Abdomen soft, non-tender, nondistended. Bowel sounds x4. MUSCULOSKELETAL: No obvious deformities. No clubbing or cyanosis. No edema. NEUROLOGICAL: Awake and alert. No focal neurological deficits. Moves upper and lower extremities spontaneously. Normal speech. PSYCHIATRIC: Appropriate mood and affect; insight and judgment normal. A/P Problem List: (1) Chest pain in adult ICD Code: R07.9 Status: Acute (2) Pericarditis ICD Code: I31.9 Status: Acute (3) Diabetes ICD Code: E11.9 Status: Chronic (4) HTN (hypertension) ICD Code: I10 Status: Chronic Assessment and Plan 66 y/o female with a history of presented with complaints of chest pain for 2 days. Chest pain s/p recent bovine AVR. Suspect secondary to pericarditis. Reviewed: Troponin 0.09, 0.08, 0.07; flat, nonischemic. D-dimer mildly elevated , VQ scan shows no PE. Tmax 100.4. No leukocytosis. EKG shows NSR, no acute ST changes. -Consulted cardiothoracic surgeon, Dr Hines -Pain management with IV Dilaudid -Echo in AM/ r/o pericardial effusions -Check ESR -Caution with NSAIDs. Add colchicine Acute Kidney injury, on CKD, creatine 1.6, baseline appears to be 1.1, likely 2/ 2 dehydration -Creatinine improving to 1.33 with IVF, continue -BMP in AM -Avoid nsaids due to kidney function and only having one kidney HTN, chronic, currently stable -Continue home Cardura and Metoprolol DM, chronic, not on any medications -Accu checks AC/HS -A1C ordered Hypothyroidism, chronic -Continue home Synthroid DVT prophylaxis: SCDs Discharge Planning Follow-up echocardiogram results and CT surgery recommendations. Problem Qualifiers (1) HTN (hypertension): Qualified Code: I10 - Essential hypertension Scout Olmedo Mar 12, 2017 09:40
--- NOTE | 2017-03-12 13:12 | ECHRPT ---
Indication: CHEST PAIN , S/P AVR, BOVINE X4 WEEKS CONCLUSIONS Normal left ventricular size. Wall thickness is measured at the upper limits of normal. The left ventricular systolic function is grossly normal on limited imaging. No regional wall motion abnormalities are present. The right ventricular size is normal. The right ventricular systoilc function is normal. The interatrial septum not well visualized. Mild to moderate thickening of the mitral valve leaflets. Mitral valve mean gradient is 4 mmHg. Restricted mobility of the anterior mitral valve leaflet. Mild mitral valve regurgitation. Bovine AVR x4 weeks. There is no evidence of mass/vegetation on the aortic valve prosthesis. There is a trace of aortic insufficiency.aortic valve area is 1 cm. Aortic valve mean gradient is 18 mmHg. The tricuspid valve is not well visualized. No pulmonary valve regurgitation. BP: 109 / 69 HR: 86 Rhythm: Sinus MEASUREMENTS (Male / Female) Normal Values Technical Quality:Fair 2D ECHO LV Diastolic Diameter PLAX 4.1 cm 4.2 - 5.9 / 3.9 - 5.3 cm LV Systolic Diameter PLAX 2.6 cm IVS Diastolic Thickness 0.9 cm 0.6 - 1.0 / 0.6 - 0.9 cm LVPW Diastolic Thickness 0.9 cm 0.6 - 1.0 / 0.6 - 0.9 cm LV Relative Wall Thickness 0.4 LVOT Diameter 1.7 cm Aortic Root Diameter 2.6 cm LA Systolic Diameter LX 3.6 cm 3.0 - 4.0 / 2.7 - 3.8 cm DOPPLER AV Peak Velocity 276.0 cm/s AV Peak Gradient 30.5 mmHg AV Mean Gradient 18.0 mmHg AV Velocity Time Integral 46.5 cm LVOT Peak Velocity 125.0 cm/s LVOT Peak Gradient 6.3 mmHg LVOT Velocity Time Integral 20.9 cm LVOT Cardiac Index 2659.8 cm/minm AV Area Cont Eq vti 1.0 cm AV Area Cont Eq pk 1.0 cm MV Peak Velocity 138.0 cm/s MV Peak Gradient 7.6 mmHg MV Mean Velocity 99.3 cm/s MV Mean Gradient 4.0 mmHg Mitral E Point Velocity 119.0 cm/s Mitral A Point Velocity 132.0 cm/s Mitral E to A Ratio 0.9 LV E' Lateral Velocity 5.0 cm/s Mitral E to LV E' Lateral Ratio 23.9 LV E' Septal Velocity 4.8 cm/s Mitral E to LV E' Septal Ratio 24.9 PV Peak Velocity 94.7 cm/s PV Peak Gradient 3.6 mmHg FINDINGS LEFT VENTRICLE Normal left ventricular size. Wall thickness is measured at the upper limits of normal. The left ventricular systolic function is grossly normal on limited imaging. No regional wall motion abnormalities are present. Left ventricular diastolic function parameters are normal. RIGHT VENTRICLE The right ventricular size is normal. The right ventricular systoilc function is normal. RIGHT ATRIUM The right atrial size is normal. ATRIAL SEPTUM The interatrial septum not well visualized. MITRAL VALVE Mild to moderate thickening of the mitral valve leaflets. Mitral valve mean gradient is 4 mmHg. Restricted mobility of the anterior mitral valve leaflet. Mild mitral valve regurgitation. AORTIC VALVE Bovine AVR x4 weeks. There is no evidence of mass/vegetation on the aortic valve prosthesis. There is a trace of aortic insufficiency.aortic valve area is 1 cm. Aortic valve mean gradient is 18 mmHg. TRICUSPID VALVE The tricuspid valve is not well visualized. PULMONARY VALVE No pulmonary valve regurgitation. Sandra Roberts MD, FACC (Electronically Signed) Final Date:12 March 2017 13:11
[2017-03-12] MEDS ORDERED: ACETAMINOPHEN/HYDROcodone 325 MG/5 MG TAB PO PRN (13:45)
[2017-03-12 16:04] LABS: HEMOGLOBIN A1b 1.6 %; HEMOGLOBIN Ao 85.1 %; HEMOGLOBIN LA1C 2.1 %; HEMOGLOBIN P3 5.4 %
[2017-03-12] MEDS: predniSONE 20 MG TAB PO SCH (16:45)
[2017-03-12] MEDS ORDERED: AZITHROMYCIN 250 MG TAB PO ONE (18:00)
[2017-03-12] MEDS ORDERED: cefTRIAXone INJ 1,000 MG in SODIUM CHLORIDE 0.9% INJ 100 ML IV SCH (18:00)
--- NOTE | 2017-03-12 18:30 | EKG ---
Date Performed: 03/12/2017 Time Performed: 04:55:00 PTAGE: 66 years EKG: Sinus rhythm NON-SPECIFIC ST/T WAVE CHANGES PREVIOUS TRACING : 03/11/2017 18.11 Compared to prior tracing no significant change DOCTOR: Marlon Gil Interpretating Date/Time 03/12/2017 18:28:13
[2017-03-12] MEDS: ACETAMINOPHEN/HYDROcodone 325 MG/5 MG TAB PO PRN (18:34)
--- NOTE | 2017-03-12 18:54 | EKG ---
Date Performed: 03/11/2017 Time Performed: 18:11:35 PTAGE: 66 years EKG: Sinus rhythm NON-SPECIFIC ST/T WAVE CHANGES PREVIOUS TRACING : 03/11/2017 12.24 Compared to prior tracing no significant change DOCTOR: Marlon Gil Interpretating Date/Time 03/12/2017 18:52:40
--- NOTE | 2017-03-12 19:12 | PD.CAR.PN ---
CVT Progress Note Subjective/Hospital Course: Reviewed ECHO and clinical studies. Improving Objective: Vital Signs Date Time Temp Pulse Resp B/P Pulse Ox O2 Delivery O2 Flow Rate FiO2 03/12/17 16:00 78 03/12/17 15:17 97.6 78 18 111/70 95 03/12/17 12:00 99.5 84 16 109/64 97 03/12/17 12:00 84 03/12/17 11:02 99.3 83 16 90/53 94 03/12/17 08:00 82 03/12/17 07:17 99.9 86 17 109/69 96 03/12/17 04:34 82 105/55 03/12/17 03:08 100.4 82 20 91/56 96 Result Diagram: 03/12/17 0556 03/12/17 0556 Imaging: Last Impressions Chest X-Ray 03/11/17 1156 Signed Impressions: Service Date/Time: Saturday, March 11, 2017 12:32 - CONCLUSION: Normal examination except for minimal scarring left lower lobe. Toribio Moreno MD Lung Scan- Nuclear Medicine 03/11/17 0000 Signed Impressions: Service Date/Time: Saturday, March 11, 2017 14:49 - CONCLUSION: Normal examination. Toribio Moreno MD Cardiovascular: RRR Telemetry: NSR Incision: dry and intact Plan: Ok to D/C from my standpoint. Follow-up in the office as scheduled. Zoey Hines MD Mar 12, 2017 19:12
--- NOTE | 2017-03-12 19:15 | EKG ---
Date Performed: 03/11/2017 Time Performed: 12:24:29 PTAGE: 66 years EKG: PROBABLE Sinus rhythm NONSPECIFIC T-WAVE ABNORMALITY ABNORMAL RHYTHM ECG PREVIOUS TRACING : 02/14/2017 04.00 Compared to prior tracing no significant change DOCTOR: Marlon Gil Interpretating Date/Time 03/12/2017 19:14:38
[2017-03-13] VITALS: BP 131/69; PULSE 70; PULSE 74; RESP 18; TEMP 98.8; O2SAT 98
[2017-03-13] MEDS: ACETAMINOPHEN/HYDROcodone 325 MG/5 MG TAB PO PRN ×2 (00:49→06:53)
[2017-03-13] MEDS: SODIUM CHLOR 0.9% 1000 ML INJ 1,000 ML IV SCH (01:09)
[2017-03-13 04:05] VITALS: PULSE 60
[2017-03-13 05:50] LABS: AUTOMATED NEUTROPHIL # 5.4 TH/MM3 (1.8-7.7); BASOPHIL % 0.1 % (0.0-2.0); HEMO FLAGS DIFF FINAL; LYMPH % 9.6 % (9.0-44.0); LYMPHOCYTE # 0.7 TH/MM3 (1.0-4.8); MEAN CELL VOLUME 89.1 FL (80.0-100.0); MEAN CORPUSCULAR HEMOGLOBIN 29.1 PG (27.0-34.0); MEAN CORPUSCULAR HGB CONC 32.7 % (32.0-36.0); MONO % 10.6 % (0.0-8.0); NEUT % 79.7 % (16.0-70.0); PLATELET COUNT 149 TH/MM3 (150-450); WHITE BLOOD COUNT 6.8 TH/MM3 (4.0-11.0)
[2017-03-13 06:01] LABS: BICARBONATE 24.5 MEQ/L (21.0-32.0); POTASSIUM 4.3 MEQ/L (3.5-5.1)
[2017-03-13] MEDS: LEVOTHYROXINE SODIUM 112 MCG TAB PO SCH (06:15)
[2017-03-13] MEDS: PANTOPRAZOLE SOD 40 MG DELAYED RELEASE TAB PO SCH (06:16)
--- NOTE | 2017-03-13 06:54 | RADRPT ---
EXAM DATE/TIME: 03/13/2017 06:27 [facility] COMPARISON: CHEST PA & LAT, February 12, 2017, 15:10. INDICATIONS : Chest pain. MEDICAL HISTORY : None. SURGICAL HISTORY : Valve replacement. ENCOUNTER: Subsequent ACUITY: 2 days PAIN SCORE: 0/10 LOCATION: Bilateral chest FINDINGS: PA and lateral views of the chest demonstrate the lungs to be symmetrically aerated without evidence of mass, infiltrate or effusion. The heart size is enlarged but stable. There is evidence of a heart valve in place.. Osseous structures are intact. CONCLUSION: No acute pulmonary infiltrates. Mild cardiomegaly. Carlos Degroot MD on March 13, 2017 at 6:52 Board Certified Radiologist. This report was verified electronically.
[2017-03-13 08:20] VITALS: BP 183/88; PULSE 63; RESP 18; TEMP 99.1; O2SAT 98
[2017-03-13] MEDS: METOPROLOL TARTRATE 25 MG TAB PO SCH (08:34)
[2017-03-13] MEDS: buPROPion HCL 150 MG SUSTAINED RELEASE TAB PO SCH (08:35)
[2017-03-13] MEDS: DOCUSATE SODIUM 50 MG/SENNA 8.6 MG TAB PO SCH (08:35)
[2017-03-13] MEDS: ASPIRIN 81 MG CHEW TAB PO SCH (08:35)
[2017-03-13] MEDS: predniSONE 20 MG TAB PO SCH (08:35)
[2017-03-13] MEDS: VENLAFAXINE HCL XR 37.5 MG CAP PO SCH (08:35)
[2017-03-13] MEDS ORDERED: COLC1TAB15 PO (08:36)
[2017-03-13] MEDS ORDERED: HYDR-3366 PO (08:36)
[2017-03-13] MEDS ORDERED: PRED20 PO (08:36)
[2017-03-13] MEDS: SODIUM CHLORIDE 0.9% FLUSH 10 ML FLUSH IV FLUSH SCH (08:36)
[2017-03-13] MEDS ORDERED: CEFU1TAB20 PO (08:36)
[2017-03-13] MEDS: COLCHICINE 0.6 MG TAB PO SCH (08:36)
[2017-03-13] MEDS ORDERED: AZIT250T3 PO (08:36)
--- NOTE | 2017-03-13 08:45 | HHI.PR ---
Subjective Remarks Follow-up for chest pain. The patient is upset about her pain control during her hospitalization. She does take [place] 10/325 at home 4 times daily for chronic back pain. She states that her pain was much better controlled after her from [place] dose was resumed. She reports improvement in shortness of breath today. She denies any cough. Fever and chills have improved since admission. Objective Vitals Vital Signs Date Time Temp Pulse Resp B/P Pulse Ox O2 Delivery O2 Flow Rate FiO2 03/13/17 08:20 99.1 63 18 183/88 98 03/13/17 04:05 60 03/13/17 00:00 70 03/13/17 00:00 98.8 74 18 131/69 98 03/12/17 20:21 98.2 79 18 127/56 95 03/12/17 16:00 78 03/12/17 15:17 97.6 78 18 111/70 95 03/12/17 12:00 99.5 84 16 109/64 97 03/12/17 12:00 84 03/12/17 11:02 99.3 83 16 90/53 94 I/O 03/12/17 03/12/17 03/12/17 03/13/17 03/13/17 03/13/17 07:00 15:00 23:00 07:00 15:00 23:00 Intake Total 820 ml Balance 820 ml Intake Oral 820 ml # Voids 3 Result Diagram: 03/13/17 0349 03/13/17 0349 Imaging Last Impressions Chest X-Ray 03/13/17 0600 Signed Impressions: Service Date/Time: Monday, March 13, 2017 06:27 - CONCLUSION: No acute pulmonary infiltrates. Mild cardiomegaly. Carlos Degroot MD Lung Scan-V Nuclear Medicine 03/11/17 0000 Signed Impressions: Service Date/Time: Saturday, March 11, 2017 14:49 - CONCLUSION: Normal examination. Toribio Moreno MD Objective Remarks GENERAL: Well-developed well-nourished. In no acute distress. SKIN: Warm and dry. Well-healed anterior chest surgical incisions. HEENT: Normocephalic. Pupils equal and round. Mucous membranes pink and moist. CARDIOVASCULAR: Regular rate and rhythm. No or rub murmur appreciated. RESPIRATORY: No accessory muscle use. Clear to auscultation. Breath sounds equal bilaterally. GASTROINTESTINAL: Abdomen soft, non-tender, nondistended. Bowel sounds x4. MUSCULOSKELETAL: No obvious deformities. No clubbing or cyanosis. No edema. NEUROLOGICAL: Awake and alert. No focal neurological deficits. Moves upper and lower extremities spontaneously. Normal speech. PSYCHIATRIC: Appropriate mood and affect; insight and judgment normal. A/P Problem List: (1) Chest pain in adult ICD Code: R07.9 Status: Acute (2) Pericarditis ICD Code: I31.9 Status: Acute (3) Diabetes ICD Code: E11.9 Status: Chronic (4) HTN (hypertension) ICD Code: I10 Status: Chronic Assessment and Plan 66 y/o female with a history of presented with complaints of chest pain for 2 days. Chest pain s/p recent bovine AVR. Sounds pleuritic, possibly secondary to pericarditis or atypical pneumonia. Reviewed: Troponin 0.09, 0.08, 0.07; flat, nonischemic. D-dimer mildly elevated , VQ scan shows no PE. Tmax 100.4, afebrile overnight. No leukocytosis. EKG shows NSR, no acute ST changes. ESR 38. Echocardiogram showed aortic valve replacement with no other significant abnormalities. Chest x-ray unremarkable. -Consulted cardiothoracic surgeon, Dr Hines, cleared for discharge from his standpoint for outpatient follow-up -Pain management with [place], increased frequency to every 4 hours as needed for the next few days -Caution with NSAIDs. Added colchicine. Started steroids, prednisone 20 mg daily, plan to taper in 2 weeks if symptoms improved. -With fever and no definite signs of pericarditis, treat for atypical pneumonia with azithromycin and IV Rocephin/oral Ceftin. Acute Kidney injury, on CKD, creatine 1.6, baseline appears to be 1.1, likely 2/ 2 dehydration/infection -Creatinine improved to 1.12 with IVF -Avoid nsaids due to kidney function and only having one kidney HTN, chronic, currently stable -Continue home Cardura and Metoprolol DM by history, not on any medications -Accu checks AC/HS -A1C 5.6, no diabetes Hypothyroidism, chronic -Continue home Synthroid DVT prophylaxis: SCDs Discharge Planning Discharge patient to home Condition on discharge: Improved Heart healthy Diet as tolerated Regular activity Rx written: [place], colchicine, prednisone, azithromycin, Ceftin Follow-up with primary care physician and cardiac thoracic surgery Problem Qualifiers (1) HTN (hypertension): Qualified Code: I10 - Essential hypertension Scout Olmedo Mar 13, 2017 08:45
[2017-03-13] MEDS ORDERED: AZITHROMYCIN 250 MG TAB PO SCH (09:00)
== END 2017-03-13 13:46 | disposition home or self-care (01) ==
LOC: NEPC 11:46 → NEDA 16:19 → NEPGCP 19:35
PROVIDERS: ADMIT Internal Medicine; ATTEND Internal Medicine
DX: R07.89 Other chest pain (principal); I31.9 Disease of pericardium, unspecified; N17.9 Acute kidney failure, unspecified; R50.9 Fever, unspecified; R42 Dizziness and giddiness; I51.7 Cardiomegaly; R94.31 Abnormal electrocardiogram [ECG] [EKG]; R06.00 Dyspnea, unspecified; R06.02 Shortness of breath; R63.4 Abnormal weight loss; I12.9 Hypertensive chronic kidney disease with stage 1 through stage 4 chronic kidney disease, or unspecified chronic kidney disease; N18.3 Chronic kidney disease, stage 3 (moderate); E78.5 Hyperlipidemia, unspecified; E11.9 Type 2 diabetes mellitus without complications; E03.9 Hypothyroidism, unspecified; G47.30 Sleep apnea, unspecified; F41.9 Anxiety disorder, unspecified; F32.9 Major depressive disorder, single episode, unspecified; M54.9 Dorsalgia, unspecified; G89.29 Other chronic pain; M19.90 Unspecified osteoarthritis, unspecified site; Z95.2 Presence of prosthetic heart valve; Z85.43 Personal history of malignant neoplasm of ovary; Z86.718 Personal history of other venous thrombosis and embolism; Z98.84 Bariatric surgery status; Z79.899 Other long term (current) drug therapy; Z79.82 Long term (current) use of aspirin
CPT/HCPCS: 71010; 71020; 78582; 80048; 82550; 82948; 83036; 83690; 83735; 83880; 84484; 85025; 85379; 85610; 85652; 85730; 87040; 93005; 93306; 94150; 96374; 96375; 99285; A9540; A9567; G0378; J0696; J1170; J2270; J2405; J7030; J7050; J7512

== ENCOUNTER 2017-04-23 16:30 | Emergency (ER) | payer MEDICARE, OTHER ==
[~2017-04-23 16:30] MED LIST changes: -ACYC200C66 PO; -ADDE20 PO; -AMIO200T PO; +AZIT250T3 PO; +CEFU1TAB20 PO; +COLC1TAB15 PO; +DICL1GEL3 TOPICAL; -DICL1KIT TOPICAL; -DOCU1CAP39 PO; -EXEN1INJ SQ; -GABA300C5 PO; -HUMALOG SQ; +PRED20 PO; -THERM PO
[2017-04-23 16:32] VITALS: BP 189/96; PULSE 89; RESP 20; TEMP 97.8; O2SAT 95
--- NOTE | 2017-04-23 16:38 | PD ---
Physical Exam Time Seen by Provider: 16:36 Narrative 67yo F c/o left arm, chest, and back pain for last few days. Recent aortic valve replacement. Thought it was musculoskeletal but has worsened. +SOB. Patient seen in triage. VS reviewed. Patient awaiting bed placement. Data Data Last Documented VS Vital Signs Date Time Temp Pulse Resp B/P (MAP) Pulse Ox O2 Delivery O2 Flow Rate FiO2 04/23/17 16:32 97.8 89 20 189/96 (127) 95 MDM Supervised Visit with TARUN: Racheal Brunner Apr 23, 2017 16:37
[2017-04-23] MEDS ORDERED: SODIUM CHLORIDE 0.9% FLUSH 10 ML FLUSH IVF PRN (16:45)
--- NOTE | 2017-04-23 17:16 | RADRPT ---
EXAM DATE/TIME: 04/23/2017 16:48 [facility] COMPARISON: CHEST PA & LAT, March 13, 2017, 6:27. INDICATIONS : Chest pain. MEDICAL HISTORY : Cardiovascular disease. SURGICAL HISTORY : Heart valve replacement. ENCOUNTER: Initial ACUITY: 1 week PAIN SCORE: 10/10 LOCATION: Left chest FINDINGS: Slight left base rectal opacity and blunting of left costophrenic angle are stable. Right lung is foc ally clear. Prosthetic aortic valve noted. Cardiac contours are stable and satisfactory. Small mallea ble plate on the sternum. CONCLUSION: Stable chest appearance Phi Bee MD on April 23, 2017 at 17:12 Board Certified Radiologist. This report was verified electronically.
[2017-04-23 17:50] LABS: APTT (PATIENT) 27.8 SEC (24.3-30.1); INTERNATIONAL NORMALIZED RATIO 0.9 RATIO; PROTHROMBIN TIME - PATIENT 10.4 SEC (9.8-11.6)
[2017-04-23 18:04] LABS: BICARBONATE 26.7 MEQ/L (21.0-32.0); MAGNESIUM 2.1 MG/DL (1.5-2.5); POTASSIUM 3.7 MEQ/L (3.5-5.1)
[2017-04-23 18:43] VITALS: BP 182/95; PULSE 84; RESP 18; O2SAT 97
--- NOTE | 2017-04-23 18:50 | PD ---
HPI . Chest pain Chief Complaint: Cardiac Complaint Time Seen by Provider: 18:25 Travel History International Travel<30 days: No Contact w/Intl Traveler<30days: No Traveled to known affect area: No History of Present Illness HPI This patient presents with chief complaint of some chest pain. Onset was about a week ago. She states that it started after mopping the floor. She initially attributed her symptoms to musculoskeletal pain from mopping, the symptoms have persisted so she decided she needed to come get it checked out. Chest pain is exacerbated by deep breathing and is improved with hydrocodone, 20 mg. She states that the hydrocodone knocks her out but that she has pain again on awakening. Pain is rated 8/10. It is a sharp pain. It is associated with shortness of breath. This patient reports aortic valve replacement on February 13. She came back here on March 15 with chest pain which was eventually attributed to pericarditis. She was treated with prednisone with good relief. She states that her pain today is similar to the pain that she had prior to the pericarditis. PFSH Past Medical History Arthritis: Yes (Hands, back) Blood Disorders: No Anxiety: No Depression: Yes Heart Rhythm Problems: No Cancer: Yes (OVARIAN ) Cardiovascular Problems: No High Cholesterol: No Chemotherapy: Yes (OVARIAN CANCER) Chest Pain: No Congestive Heart Failure: No Diabetes: Yes Endocrine: Yes Gastrointestinal Disorders: No GERD: No Glaucoma: No Genitourinary: No Hepatitis: Yes (HX OF HEP A) Hiatal Hernia: Yes (See surgical comments) Hypertension: Yes Immune Disorder: No Kidney Stones: Yes Musculoskeletal: Yes (ARTHRITIS) Neurologic: No Psychiatric: Yes Reproductive: No Respiratory: No Integumentary: No Radiation Therapy: No Renal Failure: Yes (CKD III) Thyroid Disease: Yes (HYPOTHYROID) Ulcer: No Past Surgical History Abdominal Surgery: Yes Cardiac Surgery: Yes Ear Surgery: No Endocrine Surgery: No Eye Surgery: No Genitourinary Surgery: Yes (Hemorrhoidectomy, , right nephrectomy 2010 ) Gynecologic Surgery: Yes (Total hysterectomy with oophrectomy) Hysterectomy: Yes Oral Surgery: No Thoracic Surgery: No Valve Replacement: Yes (aortic) Social History Alcohol Use: No Tobacco Use: No Substance Use: No Allergies-Medications (Allergen,Severity, Reaction): Coded Allergies: adhesive (Unverified Allergy, Severe, 04/09/17) diatrizoate meglumine (Unverified Allergy, Severe, 04/09/17) gadobenic acid (Unverified Allergy, Severe, 04/09/17) gadodiamide (Unverified Allergy, Severe, 04/09/17) gadoteridol (Unverified Allergy, Severe, 04/09/17) iodine (Unverified Allergy, Severe, 04/09/17) iodixanol (Unverified Allergy, Severe, 04/09/17) iohexol (Unverified Allergy, Severe, 04/09/17) potassium iodide (Unverified Allergy, Severe, 04/09/17) povidone-iodine (Unverified Allergy, Severe, 04/09/17) sodium iodide (Unverified Allergy, Severe, 04/09/17) sodium iodide (Unverified Allergy, Severe, 04/09/17) Reported Meds & Prescriptions Reported Meds & Active Scripts Active [place] (Hydrocodone-Acetaminophen) 10-325 Mg Tab 1 Tab PO Q4HR PRN Metoprolol Tartrate 25 Mg Tab 12.5 Mg PO Q12HR Aspirin Low Strength (Aspirin) 81 Mg Chew 81 Mg PO DAILY Reported Diclofenac Topical 3 % Gel 1 Applic TOPICAL QID Effexor (Venlafaxine HCl) 37.5 Mg Tab 37.5 Mg PO Q12H Tizanidine (Tizanidine HCl) 2 Mg Tab 2 Mg PO HS Synthroid (Levothyroxine Sodium) 112 Mcg Tab 112 Mcg PO DAILY Bupropion HCl ER 24 HR (Bupropion HCl) 300 Mg Tab 300 Mg PO DAILY B12 (Cyanocobalamin) 1,000 Mcg Tab Unknown Dose PO DAILY Alprazolam 0.5 Mg Tab 0.25 Mg PO BID PRN Cardura (Doxazosin Mesylate) 2 Mg Tab 2 Mg PO DAILY Review of Systems Except as stated in HPI: all other systems reviewed are Neg General / Constitutional: No: Fever, Chills Cardiovascular: Positive: Chest Pain or Discomfort Respiratory: Positive: Shortness of Breath Physical Exam Narrative GENERAL: Awake and alert and in no acute distress. SKIN: Warm and dry. HEAD: Atraumatic. Normocephalic. EYES: Pupils equal and round. Extraocular movements are intact. ENT: No nasal bleeding or discharge. Mucous membranes pink and moist. NECK: Trachea midline. Neck is supple. CARDIOVASCULAR: Regular rate and rhythm. Soft systolic ejection murmur. RESPIRATORY: No accessory muscle use. Lungs are clear with full air movement throughout. No chest wall tenderness. GASTROINTESTINAL: Abdomen soft, non-tender, nondistended. MUSCULOSKELETAL: No obvious deformities. No edema. Mild tenderness to palpation of the left deltoid and left trapezius. NEUROLOGICAL: Awake and alert. No obvious cranial nerve deficits. Motor grossly within normal limits. Normal speech. PSYCHIATRIC: Appropriate mood and affect; insight and judgment normal. Data Data Last Documented VS Vital Signs Date Time Temp Pulse Resp B/P (MAP) Pulse Ox O2 Delivery O2 Flow Rate FiO2 04/23/17 18:44 18 96 Room Air 04/23/17 18:43 04/23/17 18:43 84 04/23/17 16:32 97.8 Orders Orders Electrocardiogram (04/23/17 16:38) Basic Metabolic Panel (Bmp) (04/23/17 16:38) Ckmb (Isoenzyme) Profile (04/23/17 16:38) Complete Blood Count With Diff (04/23/17 16:38) Magnesium (Mg) (04/23/17 16:38) Prothrombin Time / Inr (Pt) (04/23/17 16:38) Act Partial Throm Time (Ptt) (04/23/17 16:38) Troponin I (04/23/17 16:38) Ecg Monitoring (04/23/17 16:38) Iv Access Insert/Monitor (04/23/17 16:38) Oximetry (04/23/17 16:38) Oxygen Administration (04/23/17 16:38) Sodium Chloride 0.9% Flush (Ns Flush) (04/23/17 16:45) Chest, Pa & Lat (04/23/17 16:38) Labs Laboratory Tests Test 04/23/17 17:11 Prothrombin Time 10.4 SEC Prothromb Time International Ratio 0.9 RATIO Activated Partial Thromboplast Time 27.8 SEC Blood Urea Nitrogen 12 MG/DL Creatinine 1.20 MG/DL Random Glucose 119 MG/DL Calcium Level 9.2 MG/DL Magnesium Level 2.1 MG/DL Sodium Level 142 MEQ/L Potassium Level 3.7 MEQ/L Chloride Level 106 MEQ/L Carbon Dioxide Level 26.7 MEQ/L Anion Gap 9 MEQ/L Estimat Glomerular Filtration Rate 45 ML/MIN Total Creatine Kinase 45 U/L Troponin I 0.07 NG/ML MDM Medical Decision Making Medical Screen Exam Complete: Yes Emergency Medical Condition: Yes Medical Record Reviewed: Yes (this patient had an echo done on 03/12 which was basically normal. Her discharge diagnoses did not mention pericarditis.) Interpretation(s) EKG shows a sinus rhythm with some nonspecific anterior changes. The EKG is unchanged from previous. Differential Diagnosis Differential diagnosis of chest pain includes but is not limited to musculoskeletal pain, pulmonary embolism, acute coronary syndrome, pneumonia, pleurisy Narrative Course This patient presents for the evaluation of chest pain. She has had chest pain for over a week. Last Impressions Chest X-Ray 04/23/17 [id number] Signed Impressions: Service Date/Time: Sunday, April 23, 2017 16:48 - CONCLUSION: Stable chest appearance Phi Bee MD BMP Diagram 04/23/17 17:11 Calcium Level 9.2, Magnesium Level 2.1 Troponin is 0.07. On review of her records, this is her usual troponin. This patient has had chest pain for over a week. Her troponin is at her baseline. She is stable for discharge to home. I will treat her with prednisone. Diagnosis Primary Impression: Chest pain in adult Med/Other Pt SpecificInfo: Prescription(s) given Scripts Prednisone (Prednisone) 20 Mg Tab 20 MG PO DAILY for Inflammation, #21 TAB Can begin to taper in 2 weeks if symptoms improved. Prov: Carlee Mooney MD 04/23/17 Disposition: DISCHARGE HOME Condition: Stable Carlee Mooney MD Apr 23, 2017 18:50
[2017-04-23] MEDS ORDERED: PRED20 PO (19:03)
[2017-04-23 19:13] LABS: AUTOMATED NEUTROPHIL # 4.2 TH/MM3 (1.8-7.7); BASOPHIL # 0.1 TH/MM3 (0-0.2); BASOPHIL % 0.9 % (0.0-2.0); EOSINOPHIL # 0.1 TH/MM3 (0-0.4); EOSINOPHIL % 2.5 % (0.0-4.0); HEMATOCRIT 32.1 % (35.0-46.0); HEMO FLAGS DIFF FINAL; LYMPH % 19.2 % (9.0-44.0); LYMPHOCYTE # 1.1 TH/MM3 (1.0-4.8); MEAN CELL VOLUME 88.5 FL (80.0-100.0); MEAN CORPUSCULAR HEMOGLOBIN 28.6 PG (27.0-34.0); MEAN CORPUSCULAR HGB CONC 32.3 % (32.0-36.0); NEUT % 71.4 % (16.0-70.0); PLATELET COUNT 370 TH/MM3 (150-450); RED BLOOD COUNT 3.62 MIL/MM3 (4.00-5.30); RED CELL DISTRIBUTION WIDTH 14.1 % (11.6-17.2); WHITE BLOOD COUNT 5.9 TH/MM3 (4.0-11.0)
[2017-04-23] MEDS ORDERED: MORPHINE SULFATE 4 MG/ML INJ IV PUSH ONE (19:15)
[2017-04-23] MEDS ORDERED: DEXAMETHASONE SOD PHOS 20 MG/5 ML VIAL IV PUSH ONE (19:15)
--- NOTE | 2017-04-24 17:02 | EKG ---
Date Performed: 04/23/2017 Time Performed: 16:59:55 PTAGE: 67 years EKG: Sinus rhythm NONSPECIFIC T-WAVE ABNORMALITY Since previous tracing, no significant change noted BORDERLINE ECG PREVIOUS TRACING : 03/12/2017 04.55 DOCTOR: Sandra Roberts Interpretating Date/Time 04/24/2017 17:00:39
== END 2017-04-23 19:54 | disposition home or self-care (01) ==
LOC: NEPC 16:30
DX: R07.9 Chest pain, unspecified (principal); R06.02 Shortness of breath; E11.22 Type 2 diabetes mellitus with diabetic chronic kidney disease; I12.9 Hypertensive chronic kidney disease with stage 1 through stage 4 chronic kidney disease, or unspecified chronic kidney disease; N18.3 Chronic kidney disease, stage 3 (moderate); M13.88 Other specified arthritis, other site; M13.849 Other specified arthritis, unspecified hand; E03.9 Hypothyroidism, unspecified; Z95.2 Presence of prosthetic heart valve
CPT/HCPCS: 71020; 80048; 82550; 83735; 84484; 85025; 85610; 85730; 93005; 96374; 96375; 99285; J1100; J2270